=== PATIENT | female | born 1995 | race Caucasian/White ===

== ENCOUNTER 2024-11-23 07:04 | Day surgery (SDC) | payer BC, SELFPAY ==
[2024-11-23] VITALS (12 sets, daily range): BP systolic 120–148; BP diastolic 63–90; PULSE 65–86; RESP 12–23; TEMP 36.6–37.6; O2SAT 93–97; BMI 39.6
[2024-11-23 07:34] LABS: Ur HCG Qualitative* Negative (Negative)
[2024-11-23 07:40] LABS: Hemoglobin* 12.9 gm/dL (12.0-16.0)
[2024-11-23] MEDS: LACTATED RINGERS 1000 ML 1,000 ML 100 ML IV (07:40)
[2024-11-23] MEDS: SODIUM CHLORIDE 0.9 % (FLUSH) 10 ML SYRINGE IVF (07:40)
--- NOTE | 2024-11-23 09:16 | W.PM.H&PU ---
History & Physical Update History & Physical Update H&P Reviewed and patient assessed: No changes noted H&P Updates: She is clear and consistent she desires permanent sterilization. Has not had intercourse in months Mirena IUD in place UPT negative
[2024-11-23] MEDS: BUPIVACAINE 0.5 %/EPI 1:200K 30 ML INJECTION (09:45)
--- NOTE | 2024-11-23 10:15 | P.ANES_ITS ---
Anesthesia Charges Start Date/Time Anesthesia Start Date: 11/23/24 Anesthesia Start Time: 09:12 Stop Date/Time Anesthesia Stop Date: 11/23/24 Anesthesia Stop Time: 10:53 Coding CPT Codes CPT Codes: ANESTH SURG LOWER ABDOMEN - 66303 ([id number]) P3 - PATIENT W/SEVERE SYS DISEASE, QK - DECKHAND OYSTER DREDGE 2-4 CNCRNT ANES PROC, QX - AG SERVICE MANAGER SVC W/ MD MED DIRECTION
--- NOTE | 2024-11-23 10:15 | W.ANESCHARGE ---
Anesthesia Charges Start Date/Time Anesthesia Start Date: 11/23/24 Anesthesia Start Time: 09:12 Stop Date/Time Anesthesia Stop Date: 11/23/24 Anesthesia Stop Time: 10:53 Coding CPT Codes CPT Codes: ANESTH SURG LOWER ABDOMEN - 06264 ([id number]) P3 - PATIENT W/SEVERE SYS DISEASE, QK - FURNACE ROASTER 2-4 CNCRNT ANES PROC, QX - GENERAL CLERK SVC W/ MD MED DIRECTION
--- NOTE | 2024-11-23 10:52 | P.ANES_ITS ---
Anesthesia Charges Start Date/Time Anesthesia Start Date: 11/23/24 Anesthesia Start Time: 09:12 Stop Date/Time Anesthesia Stop Date: 11/23/24 Anesthesia Stop Time: 10:53 Coding CPT Codes CPT Codes: ANESTH SURG LOWER ABDOMEN - 96980 ([id number]) P3 - PATIENT W/SEVERE SYS DISEASE, QK - CATIA DESIGNER 2-4 CNCRNT ANES PROC, QX - SAMPLE STITCHER SVC W/ MD MED DIRECTION
--- NOTE | 2024-11-23 10:52 | W.ANESCHARGE ---
Anesthesia Charges Start Date/Time Anesthesia Start Date: 11/23/24 Anesthesia Start Time: 09:12 Stop Date/Time Anesthesia Stop Date: 11/23/24 Anesthesia Stop Time: 10:53 Coding CPT Codes CPT Codes: ANESTH SURG LOWER ABDOMEN - 27013 ([id number]) P3 - PATIENT W/SEVERE SYS DISEASE, QK - DIRECT CHILL CASTER 2-4 CNCRNT ANES PROC, QX - [place] MAKEUP ARTIST SVC W/ MD MED DIRECTION
--- NOTE | 2024-11-23 10:59 | P.PCNOB_ITS ---
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 Postoperative diagnosis: Same. Procedure: Laparoscopic bilateral salpingectomy Anesthesia: General endotracheal, Local Surgeon: Arcelia Brian MD EBL: 5 mL Urine output: 500 mL clear urine IVF: 950 ml Exam under anesthesia: Mons normal, clitoris normal, urethral meatus normal. Labia minora and majora normal in appearance bilaterally. Perineum and anus normal appearance. Vaginal introitus normal appearance. Bimanual exam reveals uterus to be soft, nontender, mobile, retroverted, of normal size and texture. No palpable adnexal masses or tenderness. On laparoscopy: Normal retroverted uterus, small amount of peritoneal fluid noted in posterior cul-de-sac, normal ovaries bilaterally. Normal right fallopian tube. Left fallopian tube with multiple paratubal cysts. Normal liver and abdominal survey of entry sites. Procedure: Patient was taken to the operating room where general anesthetic was found to be adequate. She was placed in the dorsal lithotomy position and an exam under anesthesia was performed with findings stated above. She was then prepped and draped in a normal sterile manner. A Javier catheter was then placed. A large sponge stick was placed into the vagina to be used as a manipulator was then placed. Attention was then turned to performing the laparoscopic portion of the procedure. All incisions were injected with 0.5% bupivacaine with epi prior to incision. A vertical 5 mm infraumbilical incision was made. Hilda used to grasp the fascia and a small jovi was made in the fascia with curved Solorzano and a 5 mm trocar placed under direct visualization with the laparoscope. 5 mm camera was placed within the 5 mm Fios Kii trocar, and advanced under direct visualization through the anterior abdominal wall into the peritoneal cavity, while tenting up the anterior abdominal wall. The trocar was removed. The balloon was inflated, holding the port in place. Pneumoperitoneum was achieved. Survey of the abdomen and pelvis revealed the above-noted findings. Two additional port sites were created. The first was in the patient's left lower quadrant, just superomedial to the left ASIS. The second was a hand's breath superior to and slightly medial to the first. Each was infiltrated with small amount of Marcaine prior to incision. A 5 mm incision was made at each site, after assuring that large vessels were out of harm's way. A 5 mm Fios Kii port was inserted at each site, under direct visualization and without complication. The balloon on each of the 3 ports was inflated, holding each in place. The right fallopian tube was grasped with a sliding grasper. The left fallopian tube was removed from the broad ligament using the LigaSure dissecting forceps starting at the fimbriated end of the tube. Sequential pedicles were then formed to the level of the cornua. The tube was then removed at the cornua and removed from the abdomen through the left lower quadrant port. The right fallopian tube was removed in a similar manner except the skin the paratubal cysts was stuck at the port site. Thus, balloon was deflated and trocar removed to try an removal the specimen with the trocar. However, this was unsuccessful and skin incision was extended to grasp the fallopian tube with an Allis at the port site under direct visualization and removed with gentle traction. Excellent hemostasis was noted of all pedicles. The trocars were then removed under direct visualization. The CO2 gas was allowed to escape the infraumbilical port prior to its removal. All trocars were 5 mm and thus fascia was not closed. All incisions were reapproximated using 4-0 Monocryl in a running subcuticular manner. Exofin was applied over each incision. The vaginal manipulator and Javier catheter were removed. The patient tolerated this procedure well. Sponge, lap and instrument counts were correct x2 at the end of the procedure and the patient was taken to the recovery area in stable condition. Debrief performed and specimen reviewed.
[2024-11-23] MEDS: fentaNYL 100 MCG/2 ML inj 50 MCG IVP (11:05)
[2024-11-23] MEDS: OXYCODONE 5 MG TABLET PO (11:51)
== END 2024-11-23 12:25 | disposition home or self-care (01) ==
LOC: OR 07:06
PROVIDERS: PCP Family Medicine; Visit Provider Obstetrics & Gynecology
PROC: (CPT 58661; principal; 2024-11-23 08:45)
DX: Z30.2 Encounter for sterilization (principal)
CPT/HCPCS: 58661; 00840; 36415; 81025; 85018; 86850; 86900; 86901; 88307; A4314; A9270; J1100; J1885; J2250; J2405; J2704; J2710; J3010; J3490; J7120

== ENCOUNTER 2025-01-23 02:45 | Emergency (ER) | payer BC, SELFPAY ==
--- OUTSIDE RECORDS SUMMARY | 2025-01-23 02:50 | XMS_ITS | Clinical Summary ---
Author Organization [facility] Address [address] [place] [address] Care Team Providers Care Spring Fitter Helper Name Role Phone Isabela Thorpe MD Primary Care Provider Allergies Active Allergy Reactions Criticality Noted Date Comments Milk GI Upset 07/17/2016 Medications levonorgestrel (MIRENA) 21 mcg/24 hours (8 yrs) 52 mg intrauterine device (IUD)Indications: Uses contraception Inject 1 Device intrauterine one time. 12/07/19 24 Active hydrOXYzine HCL (ATARAX) 25 mg tablet TAKE 1-2 TABLETS BY MOUTH EVERY NIGHT AT BEDTIME NEEDED FOR SLEEP 07/06/19 25 Active durable medical equipment (DME)Indications: Left foot pain,Metatarsal stress fracture, left, initial encounter AIR SELECT, SHORT, MEDIUM, REF: -M 1 Each 10/12/19 25 Active CPAPIndications:O SA (obstructive sleep apnea) RESMED CPAP (E0601) machine for home use at pressure: 5-15cmw, Choice of mask (A7030 or A7034) w/full face cushion (A7031) x1/mo, nasal cushion (A7032) x2/mo, or nasal pillows (A7033) x 2/mo; Length of Need: 99 months; Frequency of use: Daily 1 Each 11 11/09/19 25 Active durable medical equipment (DME)Indications: Left foot pain,Metatarsal stress fracture, left, initial encounter -M airselect, SHORT, Medium 1 Each 11/09/19 25 Active lamoTRIgine 200 mg tablet Take 1 Tablet (200 mg) by mouth once daily. 11/15/19 Active fluvoxaMINE (LUVOX) 100 mg tablet Take 1 Tablet by mouth once daily. 12/30/19 Active vilazodone 20 mg tablet Take 1 Tablet (20 mg) by mouth once daily. 11/15/19 25 025 Discontinu ed(*Patien t states no longer taking) predniSONE (DELTASONE) 10 mg tabletIndications :Myalgia Take 3 Tablets (30 mg) by mouth once daily with a meal for 2 days, THEN 2 Tablets (20 mg) once daily with a meal for 2 days, THEN 1 Tablet (10 mg) once daily with a meal for 2 days. 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 The disorder was active on 06/17/2023 and 10/11/2024. Treatment for bipolar I disorder was planned, but not specifically for seizure disorder. 02/26/22: TSH 1.07 uIU/mL On meds: lamotrigine Recent encounter dx: 10/11/24: Appointment - [facility] 07/07/24: Appointment - [facility] 11/02/23: Support OP Encounter - [facility] 06/17/23: Appointment - [facility] 02/26/22: Appointment - [facility] Recent notes: 10/11/24: Progress Notes by Sadi Trejo DPM ... [+] ? Bipolar I disorder, most recent episode (or current) manic, moderate (HC) F31.12 07/07/24: Progress Notes by Isabela Thorpe MD ... [+] Bipolar I disorder, most recent episode (or current) manic, moderate (HC) F31.12 10/28/23: Progress Notes by Isabela Thorpe MD ... [+] ? Bipolar I disorder, most recent episode (or current) manic, moderate (HC) 06/17/2023 ... [-] However, as this is planned for treatment of bipolar 1 disorder rather than seizure disorder, would not be as much of a safety concern. Cervical cancer screening 08/03/2024 Overview (08/03/2024): 07/2024 NIL/HPV Negative Plan: HPV-based testing due in 5 years Bipolar I disorder, most rec ent episode (or current) manic, moderate 06/17/2023 Encounters Date Type Department Care Team Description 01/11/2025 4:10 PM CDT Office Visit [facility] [address] [place] [address] Kamlesh Baca, Musculoskeletal Problem (I am in so much pain /Bodyaches - skin, joint, achy body 12/15 - took 600mg IBU and helps some /X1 week ); Fatigue (Falling asleep, feeling fatigued, has been taking her cpap mask off in her sleep without knowing it/No energy, no motivation /X1 week ) 01/11/2025 Travel 12/07/2024 3:45 PM CDT Ancillary Procedure [facility] [address] [place] [address] 12/07/2024 3:15 PM CDT Office Visit [facility] [address] [place] [address] Sadi Trejo DPM Follow Up (4 week follow up left foot stress fracture ) 12/07/2024 Travel 11/24/2024 Lab Requisition [facility] [phone] Arcelia Brian MD 11/23/2024 Orders Only [facility] Scanner 1 scan: (1-Ord) [facility], LAPAROSCOPIC BILAT SALPINGECTOMY, 11/23/2024 11/21/2024 Telephone [facility] [address] [place] [address] Sadi Trejo DPM DME Supply (Custom orthotics) 11/14/2024 1:30 PM CDT Office Visit [facility] [address] [place] [address] Isabela Thorpe MD Pre-Op Exam (bilateral laparocoscopic on 11/23/[address] Brian) 11/14/2024 Travel 11/08/2024 3:30 PM CDT Ancillary Procedure [address] [place] [address] 11/08/2024 3:15 PM CDT Office Visit [address] [place] [address] Sadi Trejo DPM Follow Up (Left foot stress fracture, 4 week follow up) 11/08/2024 11:30 AM CDT Telemedicine [address] [address] Francisco Brito MD Sleep Follow-up (HST); Telehealth (Virtual visit, no vitals taken.) 11/08/[address] [place] [address] Sadi Trejo DPM Questions (IMAGING ) 11/08/2024 Travel 11/07/[address] [address] Sadi Trejo DPM Form 10/26/2024 7:30 AM CDT Nurse/Clinic Staff Only [address] [address] Testing (HST Return/Download) 10/26/2024 Travel 10/25/2024 2:00 PM CDT Nurse/Clinic Staff Only [address] [address] Testing (HST Setup) 10/25/2024 Procedure Only [address] [address] Francisco Brito MD Results (HST) 10/25/2024 Travel from Last 3 Months Immunizations Immunization Administration Dates Next Due COVID-19 vaccine (Zaplox NTPay[employer] 30mcg/0.3mL) PF, MDV 05/13/2021,10/11/2020,09/20/2020 HPV 9 (Gardasil 9) 02/27/2021,06/02/2019 Human Papilloma Virus Vaccine 01/27/2014 Influenza A (H1N1), Inactivated 04/27/2009 Influenza, IIV4 04/10/2023,02/27/2021,03/03/2019 Td (Age >=7 Years) 02/27/2021 Tdap 01/31/2010 Varicella Vaccine 01/31/2010 Family History Medical History Relation Name Comments Good Health Brother 3 Good Health Brother 4 Good Health Father Thyroid Disease Maternal Aunt Grave's Diabetes Maternal Grandfather Thyroid Disease Maternal Grandmother Good Health Mother Relation Name Status Comments Brother 1 Alive Brother 2 Alive Brother 3 Brother 4 Father Alive Maternal Aunt Maternal Grandfather Maternal Grandmother Mother Alive Social History Tobacco Use Types Packs/Day Years Used Date Smoking Tobacco: Never Smokeless Tobacco: Never Tobacco Cessation:Counseling Given: Yes Alcohol Use Standard Drinks/Week Comments Yes 0 (1 standard drink = 0.6 oz pur e alcohol) socially PHQ-2 Answer Date Recorded PHQ-2 TOTAL SCORE 2 07/07/2024 Social Connections Answer Date Recorded Do you often feel lonely or isolated from those around you? 0 11/14/2024 Financial Resource Strain Answer Date R ecorded Difficulty of Paying Living Expenses 3 11/14/2024 Difficulty of Paying Living Expenses Not on file 11/14/2024 Food Insecurity Answer Date Recorded Do you worry your food will run out before you are able to buy more? 1 11/14/2024 Transportation Needs Answer Date Record ed Does lack of transportation keep you from medica l appointments? 1 11/14/2024 Does lack of transportation keep you from work, meetings or getting things that you need? 1 11/14/2024 Housing Stability Answer Date Recorded What is your housing situation today? 1 11/14/2024 Utilities Answer Date Recorded Do you have trouble paying f or utilities (for example, heat, electricity, water, phone)? 1 11/14/2024 Comments No Sex and Gender Information Value Date Recorded Sex Assigned at Female 03/14/2020 2:22 PM CDT Legal Sex Female 8:01 AM CDT Gender Identity Not on file Sexual Orientation Lesbian or Alexis 05/12/2021 10 :50 AM DYE WEIGHER Occupation Industry Job Start Date Job End Date student Not on file Not on file Not on file Obstetrics History Para Term AB IAB SAB Ectopic Multiple Livin g Live Births 0 0 0 0 0 0 0 0 0 0 Last Filed Vital Signs Vital Sign Reading Time Taken Comments Blood Pressure 122/80 01/11/2025 4:08 PM CDT Pulse 82 01/11/2025 4:08 PM CDT Temperature 37.3 C (99.2 F) 06/17/2023 2:28 PM DYE WEIGHER Respiratory Rate 14 02/23/2015 2:32 PM CDT Oxygen Saturation 98% 01/11/2025 4:08 PM CDT Inhaled Oxygen Concentration - - Weight 104.2 kg (229 lb 12.8 oz) 01/11/2025 4:08 PM CDT Height 161.5 cm (5' 3.58) 10/11/2024 1:26 PM CD T Body Mass Index 39.97 10/11/2024 1:26 PM CDT Plan of Treatment Upcoming Encounters Date Type Department Care Team (Late st Contact Info) Description 01/24/2025 9:00 AM CDT Ancillary Procedure [facility] [address] [place] [address] 01/24/2025 9:45 AM CDT Ancillary Procedure [facility] [address] [place] [address] Health Maintenance Due Date Last Done Comments Hepatitis C screening for age 18-79 2015 Hepatitis B series for 19+ (1 of 3 - 19+ 3-dose series) 2016 COVID-19 vaccine series ( season) 2024 05/13/2021, 10/11/2020, 09/20/2020 Influenza Vaccine (#1) 2025 , 02/27/2021, 03/03/2019 Depression screening for age 12+ 07/08/2025 07/08/2024, 07/07/2024, 09/26/2022, Additional history exists BMI (ht and wt on same day) for age 18+ 10/11/2025 10/11/2024, 07/07/2024, 10/28/2023, Additional history exists Pap test for age 21-65 07/19/2029 , 07/19/2024, 09/06/2020 Tetanus booster 02/27/2031 02/27/2021, 01/31/2010 HIV for age 15-65 Completed 07/07/2024, 08/03/2019 Pneumococcal series for age 6-49 Aged Out No longer eligible based on patient's age to complete this topic Procedures Procedure Name Priority Date/Time Associated Diagnosis Comments FERRITIN Routine 01/11/2025 4:31 PM CDT Myalgia SEDIMENTATION RATE Routine 01/11/2025 4: 31 PM CDT Myalgia CYCLIC CITRULLINE PEPTIDE Routine 01/11/2025 4:31 PM CDT Myalgia PTH,INTACT Routine 01/11/2025 4:31 PM CDT Myalgia HLA B 27 DISEASE ASSOCIATION Routine 01/11/2025 4:31 PM CDT Myalgia LYME SCREEN W/REFLEX Routine 01/11/2025 4:31 PM CDT Myalgia TSH WITH REFLEX Routine 01/11/2025 4:31 PM CDT Myalgia CBC WITH AUTO DIFFERENTIAL Routine 01/11/2025 4:31 PM CDT Myalgia COMP METABOLIC PANEL Routine 01/11/2025 4:31 PM CDT Myalgia C-REACTIVE PROTEIN Routine 01/11/2025 4: 31 PM CDT Myalgia CK TOTAL Routine 01/11/2025 4:31 PM CDT Myalgia XR FOOT 3 VIEWS LEFT Routine 12/07/2024 3:28 PM CDT Left foot pain Metatarsal stress fracture, left, initial encounter Follow-up exam LAB TRACKING EVENT Routine 11/23/2024 10 :10 AM CDT PATH TISSUE EXAM Routine 11/23/2024 10:1 0 AM CDT SCAN-OPERATIVE/PROCEDU RE REPORT 11/23/2024 12:00 AM CDT XR FOOT 3 VIEWS LEFT Routine 11/08/2024 3:18 PM CDT Left foot pain Metatarsal stress fracture, left, initial encounter HOME SLEEP TEST TYPE 3 PORTABLE Routine 10/25/2024 11:59 PM CDT ZENAIDA (obstructive sleep apnea) YARD SUPERVISOR THIN PREP PAP SCREEN IMAGED Routine 07/19/2024 2:01 PM DYE WEIGHER Pap smear for cervical cancer screening ANTI HIV 1/2 Routine 07/07/2024 2:25 PM DYE WEIGHER Routine screening for STI (sexually transmitted infection) from Last 3 Months or Most Recently Relevant to Health Maintenance Results * SEDIMENTATION RATE (01/11/2025 4:31 PM CDT) SED RATE BY MODIFIED ROULAREN 14 < OR = 20 mm/h [facility] Blood BLOOD SPECIMEN / Unknown 01/11/2025 4:31 PM CDT 01/11/2025 4:32 PM CDT us Kamlesh Baca DO HEMATOLOGY Final Result [employer] [facility] [address] [place] [address], [facility] [address] [place] [address] * HLA B 27 DISEASE ASSOCIATION (01/11/2025 4:31 PM CDT) HLA B27 Negative Negative [facility]/ Jacquelyn [facility] Comment: HLA B27 RESULTS REVIEWED BY see note [facility]/ [facility] Comment: Doug Stinson M.D. # Ph.D., [facility] Compressor Operator, Cytogenetics and Genomics The B27 allele group of the HLA-B locus is present in 2 to 9% of the general population. About 20% of HLA-B27 carriers develop autoimmune disorders including Ankylosing Spondylitis (), Reactive Arthritis, Psoriatic Arthritis, Undifferentiated Oligoarthritis, Uveitis, or Inflammatory Bowel Disease. The highest association is with , where approximately 95% of patients are HLA-B27 positive. Genetic counseling as needed. Typing performed by PCR and hybridization with sequence specific oligonucleotide probes (SSO) using the FDA-cleared LABType(R) SSO Kit. Blood BLOOD SPECIMEN / Unknown 01/11/2025 4:31 PM CDT 01/11/2025 4:32 PM CDT Kamlesh Baca DO SEND OUTS Final Result Performing Organization Address City/[facility]/ZIP Co de Phone Number [employer] [place] [address] [place], [place] , [facility] [address] * TSH WITH REFLEX (01/11/2025 4:31 PM CDT) TSH W/REFLEX TO FT4 0.81 mIU/L [facility] Comment: Reference Range > or = 20 Years 0.40-4.50 Ranges First trimester 0.26-2.66 Second trimester 0.55-2.73 Third trimester 0.43-2.91 Blood BLOOD SPECIMEN / Unknown 01/11/2025 4:31 PM CDT 01/11/2025 4:32 PM CDT Kamlesh Baca DO CHEMISTRY Final Result Performing Organization Address City/[facility]/ZIP Co de Phone Number [facility] [facility] [address] [place] [address], [facility] [address] [place] [address] * CYCLIC CITRULLINE PEPTIDE (01/11/2025 4:31 PM CDT) CYCLIC CITRULLINATED PEPTIDE (CCP) AB (IGG) <16 UNITS [facility] [place] Comment: Reference Range Negative: <20 Weak Positive: 20-39 Moderate Positive: 40-59 Strong Positive: >59 Blood BLOOD SPECIMEN / Unknown 01/11/2025 4:31 PM CDT 01/11/2025 4:32 PM CDT Vivianakevin Pisanolasha DO SEND OUTS Final Result [facility] [employer] [facility] [address] [place] [address], [facility] [address] [place] [address] * LYME SCREEN W/REFLEX (01/11/2025 4:31 PM CDT) Pathologist [facility] LYME AB, SCREEN < or = 0.90 index [facility], Comment: REFERENCE RANGE: < OR = 0.90 Index Index Interpretation < OR = 0.90 NEGATIVE 0.91 - 1.09 EQUIVOCAL > OR = 1.10 POSITIVE This assay measures Lyme Disease (Borrelia burgdorferi) IgG plus IgM antibodies; it does not distinguish results that are both IgG and IgM positive from results that are either IgG or IgM positive. As recommended by the Centers for Disease Control and Prevention (CDC), all samples with positive or equivocal results in this screening assay will be tested using separate supplemental Lyme IgG and IgM immunoassays. Positive or equivocal screening assay results should not be interpreted as truly positive until verified as such using the supplemental assays. Screening and/or supplemental tests for Lyme disease antibodies may be falsely negative in early stages of Lyme disease, including the period when erythema migrans is apparent. These assays may be falsely positive in patients with other spirochetal diseases (e.g., syphilis) or infectious mononucleosis. Blood BLOOD SPECIMEN / Unknown 01/11/2025 4:31 PM CDT 01/11/2025 4:32 PM CDT Kamlesh Baca DO SEND OUTS Final Result Performing Organization Address [facility] Co de Phone Number [facility] [address] [place] [address], [facility], [address] [place] [address] * (ABNORMAL) C-REACTIVE PROTEIN (01/11/2025 4:31 PM CDT) Pathologist [facility] C-REACTIVE PROTEIN 14.5(H) <8.0 mg/L [facility] [place] Blood BLOOD SPECIMEN / Unknown 01/11/2025 4:31 PM CDT 01/11/2025 4:32 PM CDT Kamlesh Baca DO CHEMISTRY Final Result Performing Organization Address [facility] de Phone Number [facility] [address] [place] [address], [facility] [address] [place] [address] * (ABNORMAL) CBC AND DIFFERENTIAL (01/11/2025 4:31 PM CDT) Pathologist [facility] WHITE BLOOD CELL COUNT 8.0 3.8 - 10.8 Thousand/u L [facility] RED BLOOD CELL COUNT 4.74 3.80 - 5.10 Million/uL [facility] HEMOGLOBIN 13.8 11.7 - 15.5 g/dL [facility] HEMATOCRIT 41.2 35.0 - 45.0 % [facility] MCV 86.9 80.0 - 100.0 fL [facility] MCH 29.1 27.0 - 33.0 pg [facility] MCHC 33.5 32.0 - 36.0 g/dL [facility] Comment: For adults, a slight decrease in the calculated MCHC value (in the range of 30 to 32 g/dL) is most likely not clinically significant; however, it should be interpreted with caution in correlation with other red cell parameters and the patient's clinical condition. RDW 14.7 11.0 - 15.0 % [facility] PLATELET COUNT 345 140 - 400 Thousand/u L [facility] MPV 10.8 7.5 - 12.5 fL [facility] ABSOLUTE NEUTROPHILS 5,112 1,500 - 7,800 cells/uL [facility] ABSOLUTE LYMPHOCYTES 1,736 850 - 3,900 cells/uL [facility] ABSOLUTE MONOCYTES 568 200 - 950 cells/uL [facility] ABSOLUTE EOSINOPHILS 544(H) 15 - 500 cells/uL [facility] ABSOLUTE BASOPHILS 40 0 - 200 cells/uL [facility] [place] NEUTROPHILS 63.9 % [facility] LYMPHOCYTES 21.7 % [facility] MONOCYTES 7.1 % [facility] EOSINOPHILS 6.8 % [facility] BASOPHILS 0.5 % [facility] Blood BLOOD SPECIMEN / Unknown 01/11/2025 4:31 PM CDT 01/11/2025 4:32 PM CDT us Kamlesh Baca DO HEMATOLOGY Final Result [facility] [address] [place] [address], [facility] [address] [place] [address] * PTH,INTACT (01/11/2025 4:31 PM CDT) PARATHYROID HORMONE, INTACT 34 16 - 77 pg/mL [facility] [place] Comment: Interpretive Guide Intact PTH Calcium ------- Normal Parathyroid Normal Normal Hypoparathyroidism Low or Low Normal Low Hyperparathyroidism Primary Normal or High High Secondary High Normal or Low Tertiary High High Non-Parathyroid Hypercalcemia Low or Low Normal High CALCIUM 9.6 8.6 - 10.2 mg/dL [facility] [place] Blood BLOOD SPECIMEN / Unknown 01/11/2025 4:31 PM CDT 01/11/2025 4:32 PM CDT Kamlesh Baca DO SEND OUTS Final Result Performing Organization Address [facility]/ZIP Co de Phone Number [facility] [address] [place] [address], [place] [phone] [facility] [address] [place] [address] * FERRITIN (01/11/2025 4:31 PM CDT) FERRITIN 16 16 - 154 ng/mL [facility] [place] Blood BLOOD SPECIMEN / Unknown 01/11/2025 4:31 PM CDT 01/11/2025 4:32 PM CDT Kamlesh Baca DO CHEMISTRY Final Result Performing Organization Address [facility] de Phone Number [facility] [address] [place] [address], [place] [phone] [facility] [address] [place] [address] * CK TOTAL (01/11/2025 4:31 PM CDT) CREATINE KINASE, TOTAL 185 20 - 239 U/L [facility] Blood BLOOD SPECIMEN / Unknown 01/11/2025 4:31 PM CDT 01/11/2025 4:32 PM CDT Kamlesh Baca DO CHEMISTRY Final Result Performing Organization Address [facility]/ZIP Co de Phone Number [facility] [address] [place] [address], [facility] [address] [place] [address] * (ABNORMAL) COMP METABOLIC PANEL (01/11/2025 4:31 PM CDT) [facility] GLUCOSE 92 65 - 99 mg/dL [facility] [place] Comment: Fasting reference interval UREA NITROGEN (BUN) 10 7 - 25 mg/dL [facility] [place] CREATININE 1.01(H) 0.50 - 0.96 mg/dL [facility] [place] EGFR 78 > OR = 60 mL/min/1.7 3m2 [facility] [place] BUN/CREATININE RATIO 10 6 - 22 (calc) [facility] [place] SODIUM 141 135 - 146 mmol/L [facility] [place] POTASSIUM 4.0 3.5 - 5.3 mmol/L [facility] [place] CHLORIDE 106 98 - 110 mmol/L [facility] [place] CARBON DIOXIDE 26 20 - 32 mmol/L [facility] [place] CALCIUM 9.6 8.6 - 10.2 mg/dL [facility] [place] PROTEIN, TOTAL 6.4 6.1 - 8.1 g/dL [facility] [place] ALBUMIN 4.2 3.6 - 5.1 g/dL [facility] [place] GLOBULIN 2.2 1.9 - 3.7 g/dL (calc) [facility] [place] ALBUMIN/GLOBULIN RATIO 1.9 1.0 - 2.5 (calc) [facility] [place] BILIRUBIN, TOTAL 0.3 0.2 - 1.2 mg/dL [facility] [place] ALKALINE PHOSPHATASE 126(H) 31 - 125 U/L [facility] [place] AST 24 10 - 30 U/L [facility] [place] ALT 31(H) 6 - 29 U/L [facility] [place] Blood BLOOD SPECIMEN / Unknown 01/11/2025 4:31 PM CDT 01/11/2025 4:32 PM CDT Kamlesh Baca DO CHEMISTRY Final Result [facility] [address] [place] [address], [place] [phone] [facility] [address] [place] [address] * XR FOOT 3 VIEWS LEFT (12/07/2024 3:28 PM CDT) Only the most recent of2 resultswithin the time period is included. Anatomical Region Laterality Modality FEET, FOOT L Computed Radiogr aphy Impressions 12/08/2024 1:43 PM CDT No significant change. Narrative 12/08/2024 1:43 PM CDT LEFT FOOT, 3 views CLINICAL HISTORY: Pain FINDINGS: Stable appearance of the 3rd metatarsal. No other findings. Sadi Trejo DPM GENERAL IMAGING Final Res ult * LAB TRACKING EVENT (11/23/2024 10:10 AM CDT) Other (Other) Client Collect / Unknown 11/23/2024 10:10 AM CDT 11/24/2024 6:34 AM CDT Arcelia Brian MD LAB BILL ONLY Final Result [facility] [address] [place] [id number], * PATH TISSUE EXAM (11/23/2024 10:10 AM CDT) Case Report Pathology Report Case: [id number] Authorizing Provider: Arcelia Brian MD Collected: 11/23/2024 1010 Ordering Location: [facility] Received: 11/24/2024 1402 Pathologist: Sarahi Merida MD Specimen: Bilateral Fallopian Tubes 11/25/2024 4:19 PM CDT [facility] [employer] [facility] LABORATORY-C ENTRAL LABORATORY Final Diagnosis A) BILATERAL FALLOPIAN TUBES, BILATERAL SALPINGECTOMY: 1. Bilateral fimbriated fallopian tubes with benign paratubal cyst(s) 2. One fallopian tube also with a benign adenofibroma at the fimbriated end 3. Negative for malignancy 11/25/2024 4:19 PM CDT [facility] at 1619 CDT Clinical Information Bilateral salpingectomy for sterilization. 11/25/2024 4:19 PM CDT [facility] Gross Description A) Received in formalin, labeled with the patient's name and bilateral fallopian tubes, are 2 fimbriated fallopian tube segments averaging 5.5 cm length and 0.7 cm diameter each. There is a 0.2 x 0.2 cm light ivan nodule at the fimbriated end of 1 tube. Patent lumina are identified throughout both tubes. There are 2 separately submitted thin-walled cysts measuring 1.8 cm (previously ruptured), and 0.7 cm (intact). The smaller intact cyst contains clear watery fluid. There are no excrescences or nodules identified within the lining of either cyst. There are multiple fragments of separately submitted lobulated fatty tissue measuring 2 x 2 x 1 cm in aggregate. There are no suspicious areas identified. [employer] sections are submitted as follows: 1. Light ivan nodule adjacent to fimbriated end of tube #1 2. [employer] cross-sections and entire fimbriated end of tube #1 3. Box [place] [employer] Builder cross-sections and entire fimbriated end of tube #2 4. Sections from each of 2 separate thin-walled cysts TRB 11/24/2024 11/25/2024 4:19 PM CDT [facility] Microscopic Description The final diagnosis is based on microscopic examination of appropriate sections of all specimens. 11/25/2024 4:19 PM CDT [facility] Additional Information Interpreted at [facility] - [address], [place] [address] 11/25/2024 4:19 PM CDT [facility] Other (Bilateral Fallopian Tubes) 11/23/2024 10:10 AM CDT 11/24/2024 2:02 PM CDT us Arcelia Denae Brian MD PATHOLOGY/CYTOLOGY Final Result [facility] [address] [place] [address], * SCAN-OPERATIVE/PROCEDURE REPORT (11/23/2024 12:00 AM CDT) us Scanner OTHER Final Result * HOME SLEEP TEST TYPE 3 PORTABLE (10/25/2024 11:59 PM CDT) Narrative Francisco Brito MD - 10/25/2024 11:59 PM CDT Francisco Brito MD 10/27/2024 12:50 PM Home Sleep Test Name: Ministerio Paniagua Location: [facility] Study notes: This is a single night home sleep apnea test. The study is performed in the context of a clinical suspicion for sleep apnea. Ministerio Paniagua ( 1995) is studied using a T3 Device using nasal pressure transducer, thoracoabdominal respiratory impedence plethysmography belts, pulse oximetry, snore microphone and actigraphy for body position. The study is scored by a RPSGT and interpreted by a Diplomate of the [place] Board of Sleep Medicine. Raw summary data is scanned into this report as a separate document. An epoch by epoch review of the data has been performed by the interpreting physician. Scored following the AASM Manual for the Scoring of Sleep and Associated Events, V3. Respiratory Event Index (JENNI) Oxygen Desaturation Index (JHONATAN) REI4% 7.1 ODI4%: 6.3 REI3% 12.4 ODI3%: 12.9 Supine JENNI: 20.5 Suhas Saturation 84 % Lateral JENNI: 5.2 Time Below 88% 1.8 minutes Weight: Wt Readings from Last 1 Encounters: 10/11/24 103.1 kg (227 lb 6.4 oz) Other data: Recording Duration: 420.0 minutes Time in Bed: 419.8 minutes Estimated sleep efficiency [%]: 95 % Oximeter Quality: 99.2 % Flow Quality: 100.0 % RIP Quality: 100.0 % Supine time: 198.6 minutes Average SpO2: 93.1 % Pulse Average: 67.3 bpm Additional Comments: None IMPRESSION: Obstructive Sleep Apnea (327.23, G47.33) Nocturnal Hypoxia (327.26, G47.34) RECOMMENDATIONS: - Hypoxia is noted. While this can be probe error, it may suggest underlying cardiopulmonary disease and clinical correlation is recommended. - Mild sleep apnea is discovered. If there is low clinical suspicion of sleep apnea, this could be a false positive. Polysomnography could be considered. - Mild sleep apnea only needs treatment in the presence of attributable sleepiness. In the absence of symptoms, treatment may not be indicated. Clinical correlation is recommended. - Treatment options for mild sleep apnea include CPAP, a mandibular advancement device, lifestyle modifications such as weight loss, sedative/alcohol avoidance, avoiding supine sleep and surgical therapies can be considered in highly selected patients. - Treatment for obstructive sleep apnea is recommended and CPAP would generally be considered first-line therapy for this severity of sleep apnea. Consider auto-titrating CPAP 5-20 cm. - Consider a referral to [facility] for patients with a BMI > 30. - Follow-up with a provider to discuss results is recommended. - Patients should be advised to avoid critical tasks, such as driving, whenever drowsy. - Patients should try to achieve at least 7-8 hours of sleep on a consistent basis. - The JENNI is a surrogate for AHI. For reimbursement and/or prior authorization purposes, it would be appropriate to list the JENNI as an AHI when the latter is accepted, but not the former. Francisco Brito M.D. Diplomate, Board of Sleep Medicine Recording Information Recording Date: 10/25/2024 Analysis Start Time: 8:30 PM Recording Tags: Analysis Stop Time: 3:29 AM Device Type: T3S Analysis Duration (TRT): 6h 59m Est. Total Sleep Time: 6h 59m Position and Analysis Time Duration Percentage Supine (in TST): 198.6 m 47.3 % Non-Supine (in TST): 221 m 52.7 % Upright (in TRT): 0.2 m 0 % Movement (in TST): 19.6 m 4.7 % Invalid Data (Excluded): 0 m 0 % Respiratory Indices Index Total Supine Non-supine Count Apneas + Hypopneas (REI3%): 12.4 /h 20.5 /h 5.2 /h 87 Apneas + Hypopneas (REI4%) 7.1 /h /h /h Apneas: 0.9 /h 1.5 /h 0.3 /h 6 Obstructive (OA): 0.7 /h 1.5 /h 0 /h 5 Mixed (MA): 0 /h 0 /h 0 /h 0 Central (CA): 0.1 /h 0 /h 0.3 /h 1 Hypopneas 3%: 11.6 /h 19 /h 4.9 /h 81 Hypopneas 4%: 0 /h 63 /h 18 /h 0 Respiration Rate (per m): 16.8 /m 17.2 /m 16.5 /m Percentage of Sleep Duration Snore: 25.2 % 8.3 % 40.3 % 105.6 m Flow Limitation: 0 % 0 % 0 % 0 m Average Snore Volume 67.6 dB Percent of time greater than 80dB: Percent of 24.1 % Oxygen Saturation (SpO2) Total Supine Non-supine Oxygen Desaturation Index (JHONATAN): 12.9 /h 20.5 /h 6 /h Average SpO2: 93.1 % 92 % 94 % Minimum SpO2: 84 % 84 % 89 % SpO2 Duration < 90% 1.1 % (4.4m) 2.2 % 0 % SpO2 Duration <= 88% 0.4 % (1.8m) 0.9 % 0 % Pulse in TST Quality Average: 67.3 bpm Oximeter: 99.2 % Maximum: 90 bpm Nasal Cannula: 100 % Minimum: 53 bpm Abdomen RIP: 100 % Duration < 40 bpm: 0 m Thorax RIP: 100 % Duration > 100 bpm: 0 m Francisco Brito MD SLEEP CENTER Final Result * YARD SUPERVISOR THIN PREP PAP SCREEN IMAGED (07/19/2024 2:01 PM DYE WEIGHER) Case Report Gynecologic Cytology Report Case: [id number] Authorizing Provider: Flaca Baca DO Collected: 07/19/2024 1401 Ordering Location: [facility] Received: 07/19/2024 1408 Clinic First Screen: Ingrid Kent Specimen: YARD SUPERVISOR ThinPrep Vial Screening, Cervical 08/03/2024 12:06 PM DYE WEIGHER [facility] INTERPRETATION /RESULT NEGATIVE FOR INTRAEPITHELIAL LESION OR MALIGNANCY (NIL) (none) 08/03/2024 12:[address] [facility] at 1206 DYE WEIGHER ORGANISM(S) Shift in luciana suggestive of bacterial vaginosis 08/03/2024 12:06 PM DYE WEIGHER [facility] SPECIMEN ADEQUACY Satisfactory for evaluation Endocervical component present 08/03/2024 12:06 PM DYE WEIGHER [facility] HPV REQUEST HPV and PAP 08/03/2024 12:06 PM DYE WEIGHER [facility] Date of LMP hormonally suppressed 08/03/2024 12:06 PM DYE WEIGHER [facility] Last Pap Date 09/06/20 08/03/2024 12:06 PM DYE WEIGHER [facility] Last Pap Result NIL 08/03/2024 12:06 PM DYE WEIGHER [facility] Abnormal Pap or [place] Bx in last 5 years No 08/03/2024 12:06 PM DYE WEIGHER [facility] Menstrual Status Hormonally Suppressed 08/03/2024 12:06 PM DYE WEIGHER [facility] [place] Bx Done Today No 08/03/2024 12:06 PM DYE WEIGHER [facility] Additional Information None given 08/03/2024 12:06 PM DYE WEIGHER [facility] Comment: Cytology is screened at [facility] - [address], [place] [address] and [facility] - [address], [place] [address] and [facility] - [address] [place] [address] Interpreted at [facility] - [address], [place] [address] Automated Review Failed 08/03/2024 12:06 PM DYE WEIGHER [facility] Comment:Processing failed, m anual screening required. ThinPrep Imaging System, [employer] ANCILLARY TESTING YARD SUPERVISOR HPV Ordered, Please see separate report 08/03/2024 12:06 PM DYE WEIGHER [facility] Note The pap test is a screening technique, not a diagnostic procedure. It is used primarily to screen for squamous cancers and precursor lesions. Published studies have shown that it is subject to both false negative and false positive results. The pap test should not be used as the sole means to diagnose or exclude pre-malignant and malignant lesions. 08/03/2024 12:06 PM DYE WEIGHER [facility] Other (Cervical) Non-Blood / Unknown 07/19/2024 2:01 PM DYE WEIGHER 07/19/2024 2:08 PM DYE WEIGHER Flaca Reshma Baca DO PATHOLOGY/CYTOLOGY Final Resu lt [facility] [address] [place] [address], [place] * ANTI HIV 1/2 (07/07/2024 2:25 PM DYE WEIGHER) HIV AG/AB, 4TH GEN NON-REACT SJ NON-REACT SJ [employer] Comment: HIV-1 antigen and HIV-1/HIV-2 antibodies were not detected. There is no laboratory evidence of HIV infection. PLEASE NOTE: This information has been disclosed to you from records whose confidentiality may be protected by state law. If your state requires such protection, then the state law prohibits you from making any further disclosure of the information without the specific written consent of the person to whom it pertains, or as otherwise permitted by law. A general authorization for the release of medical or other information is NOT sufficient for this purpose. For additional information please refer to http://education.[employer]/faq/RKX228 (This link is being provided for informational/ educational purposes only.) The performance of this assay has not been clinically validated in patients less than 2 years old. Blood BLOOD SPECIMEN / Unknown 07/07/2024 2:25 PM DYE WEIGHER 07/07/2024 2:26 PM DYE WEIGHER Isabela Thorpe MD SEND OUTS Final Resul t [employer] [id number] [place] [address], [facility] [address] [place] [address] from Last 3 Months or Most Recently Relevant to Health Maintenance Insurance [id number] [id number] [facility] [phone] [phone] [facility] Care Teams Spring Fitter Helper Relationship Specialty Start Date End Date Isabela Thorpe MD [address] [place] [address] PCP - General Family Practice 09/06/20
[2025-01-23 02:56] VITALS: BP 150/80; PULSE 77; RESP 24; TEMP 36.4; O2SAT 98; BMI 39.9
[2025-01-23 03:06] LABS: Hematocrit 46.6 % (33.0-51.0); Hemoglobin* 15.6 gm/dL (12.0-16.0); Immature Granulocytes Pct Auto 0.8 %; Mean Corpuscular HGB Conc 34 gm/dL (32-36); Mean Corpuscular Hemoglobin 29 pg (26-34); Mean Corpuscular Volume 87 fL (80-100); RDW Coefficient of Variation % 13.5 % (11.5-15.5); Red Blood Count 5.38 m/uL (4.00-5.20); White Blood Count* 13.48 K/uL (4.50-11.00)
--- NOTE | 2025-01-23 03:06 | ED.GENADULT ---
HPI - General Adult General Chief complaint: Nausea/Vomiting Stated complaint: vomiting Time Seen by Provider: 01/23/25 03:06 History of Present Illness HPI narrative: Patient c/o vomiting x 1 hour. Patient denies pain, fever, urinary symptoms, changes in bowel movements . Patient states she has a lot of stressors and anxiety. Patient had salpingectomy. Patient states daily THC use. 29-year-old woman presenting to the emergency department with concern of vomiting. She had been asleep and woke and began vomiting. Has not had a fever but does feel hot. Apparently week ago did have labs done that indicated that she had an inflamed liver and that her kidneys were ?failing?. Is pending tomorrow an ultrasound of her liver and kidneys apparently. Is not really having any abdominal pain. No noted rashes. 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 Denies history of heartburn/GERD. Also has had deep pains in various locations including joint pain and swelling as well. Later able to locate said labs. Reviewed mild elevation in ALT and apparently CRP as well. Renal function looked okay. Noted that suprapubic and right lower quadrant were tender during exam. Apparently somewhat chronic and certainly present since most recent surgery; salpingectomy. Related Data Home Medications ?Medication ?Instructions ?Recorded ?Confirmed lamotrigine 200 mg tablet 200 mg PO QDAY 10/28/24 12/07/24 levonorgestrel (Mirena) 1 device intrauterine ONCE 10/28/24 12/07/24 cholecalciferol (vitamin D3) 10 10 mcg PO QDAY 12/07/24 12/07/24 mcg (400 unit) capsule hydroxyzine HCl 25 mg tablet 25 - 50 mg PO QPM PRN insomnia 12/07/24 12/07/24 vilazodone 10 mg tablet 10 mg PO DAILY 12/07/24 12/07/24 Allergies Allergy/AdvReac Type Severity Reaction Status Date / Time No Known Drug Allergies Allergy Verified 12/07/24 11:24 Review of Systems Status of ROS: Reports: 6 or more systems reviewed and unremarkable except as noted in History and below [facility] Medical History Unwanted fertility ?Z30.09 - Encounter for other general counseling and advice on contraception (ICD-10) IUD strings lost ?T83.32XA - Displacement of intrauterine contraceptive device, initial encounter (ICD-10) ZENAIDA (obstructive sleep apnea) ?G47.33 - Obstructive sleep apnea (adult) (pediatric) (ICD-10) Bipolar 1 disorder, manic, moderate ?F31.12 - Bipolar disorder, current episode manic without psychotic features, moderate (ICD-10) Surgical History History of salpingectomy ?Z90.79 - Acquired absence of other genital organ(s) (ICD-10) Social History Smoking Status: Never smoker Do you use any of these nicotine containing products: None How often do you have a drink containing alcohol: monthly or less Alcohol type: hard liquor How many standard drinks containing alcohol do you have on a typical day: 1 or 2 How often do you have six or more drinks on one occasion: Never AUDIT-C Alcohol total score: 1 Non-prescribed substance use: marijuana (any form) Non-prescribed substance use details: Daily Caffeine: Yes Are you using contraception or practicing any form of control: No service: No Exam Narrative: Exam Narrative: Cheeks look hot. Eyes are injected. Has a little diaphoretic at her forehead/hairline. Skin is otherwise warm and dry. She is well-perfused peripherally. Able to examine later where abdomen is soft and without masses. She is mildly tender to palpation suprapubic and right lower quadrant, adnexal area. Heart in regular rate and rhythm. Lungs are clear. Const: Vital Signs, click to edit/add: Vital Signs - 24 hr 01/23/25 02:56 Temperature 97.5 F L Pulse Rate [Left P ulse Oximeter] 77 Respiratory Rate 24 Blood Pressure [Ri ght Upper Arm] 150/80 H Pulse Oximetry 98 Oxygen Delivery Me thod Room Air Documenting provider has reviewed patient's vital signs: yes Course Vital Signs Vital signs: Initial Vital Signs Temperature 97.5 F L 01/23/25 02:56 Temperature Source Temporal Artery Scan 01/23/25 02:56 Pulse Rate 77 01/23/25 02:56 Respiratory Rate 24 01/23/25 02:56 Blood Pressure 150/80 H 01/23/25 02:56 Blood Pressure Mean 103 01/23/25 02:56 Blood Pressure Position Semi-Fowlers 01/23/25 02:56 Pulse Oximetry 98 01/23/25 02:56 Oxygen Delivery Method Room Air 01/23/25 02:56 Vital Signs Temperature 97.5 F L 01/23/25 02:56 Pulse Rate 77 01/23/25 02:56 Respiratory Rate 24 01/23/25 02:56 Blood Pressure 150/80 H 01/23/25 02:56 Pulse Oximetry 98 01/23/25 02:56 Oxygen Delivery Method Room Air 01/23/25 02:56 Temperature 97.5 F L 01/23/25 02:56 Pulse Rate 77 01/23/25 02:56 Respiratory Rate 24 01/23/25 02:56 Blood Pressure 150/80 H 01/23/25 02:56 Pulse Oximetry 98 01/23/25 02:56 Oxygen Delivery Method Room Air 01/23/25 02:56 Medications Administered Medications: Discontinued Medications Generic Name Dose Route Start Last Admin Trade Name Freq PRN Reason Stop Dose Admin Sodium Chloride 1,000 mls @ 1,000 mls/hr 01/23/25 03:15 01/23/25 03:20 0.9 % Sodium Chloride 1000 Ml IV 01/23/25 04:14 1,000 mls/hr .Q1H ONE Administration Ondansetron HCl 4 mg 01/23/25 03:15 01/23/25 03:20 Ondansetron 2 Mg/Ml Inj IVP 01/23/25 03:16 4 mg ONCE ONE Administration Medical Decision Making [facility] Narrative Medical decision making narrative: Will try to offer symptom relief primarily. Etiology likely nonspecific viral illness or combination of related to THC use and social/emotional stressors. Might have hyperchlorhydric stomach in the morning? Initiated IV fluids with normal saline and Zofran. Did manage to locate prior lab records. Only particularly abnormal lab was CRP. Minimally elevated ALT. Renal function looks good. Labs today show mildly elevated white count at 13.5. This is in isolation with other labs looking quite good. Reassuring renal and liver labs. On reassessment is feeling markedly improved. No longer flushed. Looks more comfortable. I do not think any further evaluation is necessary. Tolerating oral intake. See patient discharge plan for further discussion Yes. Certainly many of your symptoms can be caused or contributed to by stress. Your white count was mildly elevated here today but I do not know what that represents in isolation. As discussed you might try taking omeprazole daily for a couple of weeks; up to 40 mg a day. If the ultrasounds are reassuring, nondiagnostic, and your symptoms are continuing, I wonder if the next course of action or next study might be an EGD. Otherwise, marijuana/THC contributes to recurrent episodes of vomiting as well. Consider also other medication effect. And if needed, Zofran from [employer]. Medical Records Medical records reviewed: Yes I reviewed the patient's medical records Lab Data Lab results reviewed: Yes I reviewed the patient's lab results Labs: Lab Results 01/23/25 01/23/25 01/23/25 Range/Units 03:00 03:00 03:00 WBC 13.48 H (4.50-11.00) K/uL RBC 5.38 H (4.00-5.20) m/uL Hgb 15.6 (12.0-16.0) gm/dL Hct 46.6 (33.0-51.0) % MCV 87 (80-100) fL MCH 29 (26-34) pg MCHC 34 (32-36) gm/dL RDW Coeff of Gurjit 13.5 (11.5-15.5) % Plt Count 369 (140-440) K/uL Neut % (Auto) 69.9 (42.0-72.0) % Lymph % (Auto) 18.1 L (20-44) % [place] % (Auto) 5.2 (0.0-11.0) % Eos % (Auto) 5.6 (0.0-7.0) % Baso % (Auto) 0.4 (0.0-3.0) % Neut # (Auto) 9.40 H (1.7-7.0) K/uL Lymph # (Auto) 2.40 (0.90-2.90) K/uL [place] # (Auto) 0.70 (0.00-0.90) K/UL Eos # (Auto) 0.80 H (0.00-0.50) K/uL Baso # (Auto) 0.10 (0.00-0.30) K/uL Abs Immat Gran (auto) 0.10 (0.00-0.30) K/uL Imm/Tot Granulo (auto) 0.8 % Sodium Cancelled 141 Potassium Cancelled 3.4 L Chloride Cancelled Carbon Dioxide Anion Gap BUN Creatinine Estimated Creat Clear Estimated GFR Glucose Calcium Total Bilirubin Direct Bilirubin (0.0-0.5) mg/dL AST ALT Alkaline Phosphatase Total Protein Albumin 01/23/25 01/23/25 01/23/25 Range/Units 03:00 03:00 03:00 WBC (4.50-11.00) K/uL RBC (4.00-5.20) m/uL Hgb (12.0-16.0) gm/dL Hct (33.0-51.0) % MCV (80-100) fL MCH (26-34) pg MCHC (32-36) gm/dL RDW Coeff of Gurjit (11.5-15.5) % Plt Count (140-440) K/uL Neut % (Auto) (42.0-72.0) % Lymph % (Auto) (20-44) % [place] % (Auto) (0.0-11.0) % Eos % (Auto) (0.0-7.0) % Baso % (Auto) (0.0-3.0) % Neut # (Auto) (1.7-7.0) K/uL Lymph # (Auto) (0.90-2.90) K/uL [place] # (Auto) (0.00-0.90) K/UL Eos # (Auto) (0.00-0.50) K/uL Baso # (Auto) (0.00-0.30) K/uL Abs Immat Gran (auto) (0.00-0.30) K/uL Imm/Tot Granulo (auto) % Sodium Potassium Chloride 105 Carbon Dioxide Cancelled 26 Anion Gap Cancelled 10 BUN Cancelled Creatinine Estimated Creat Clear Estimated GFR Glucose Calcium Total Bilirubin Direct Bilirubin (0.0-0.5) mg/dL AST ALT Alkaline Phosphatase Total Protein Albumin 01/23/25 01/23/25 01/23/25 Range/Units 03:00 03:00 03:00 WBC (4.50-11.00) K/uL RBC (4.00-5.20) m/uL Hgb (12.0-16.0) gm/dL Hct (33.0-51.0) % MCV (80-100) fL MCH (26-34) pg MCHC (32-36) gm/dL RDW Coeff of Gurjit (11.5-15.5) % Plt Count (140-440) K/uL Neut % (Auto) (42.0-72.0) % Lymph % (Auto) (20-44) % [place] % (Auto) (0.0-11.0) % Eos % (Auto) (0.0-7.0) % Baso % (Auto) (0.0-3.0) % Neut # (Auto) (1.7-7.0) K/uL Lymph # (Auto) (0.90-2.90) K/uL [place] # (Auto) (0.00-0.90) K/UL Eos # (Auto) (0.00-0.50) K/uL Baso # (Auto) (0.00-0.30) K/uL Abs Immat Gran (auto) (0.00-0.30) K/uL Imm/Tot Granulo (auto) % Sodium Potassium Chloride Carbon Dioxide Anion Gap BUN 15 Creatinine Cancelled 1.0 Estimated Creat Clear Cancelled 69.90 Estimated GFR Cancelled Glucose Calcium Total Bilirubin Direct Bilirubin (0.0-0.5) mg/dL AST ALT Alkaline Phosphatase Total Protein Albumin 01/23/25 01/23/25 01/23/25 Range/Units 03:00 03:00 03:00 WBC (4.50-11.00) K/uL RBC (4.00-5.20) m/uL Hgb (12.0-16.0) gm/dL Hct (33.0-51.0) % MCV (80-100) fL MCH (26-34) pg MCHC (32-36) gm/dL RDW Coeff of Gurjit (11.5-15.5) % Plt Count (140-440) K/uL Neut % (Auto) (42.0-72.0) % Lymph % (Auto) (20-44) % [place] % (Auto) (0.0-11.0) % Eos % (Auto) (0.0-7.0) % Baso % (Auto) (0.0-3.0) % Neut # (Auto) (1.7-7.0) K/uL Lymph # (Auto) (0.90-2.90) K/uL [place] # (Auto) (0.00-0.90) K/UL Eos # (Auto) (0.00-0.50) K/uL Baso # (Auto) (0.00-0.30) K/uL Abs Immat Gran (auto) (0.00-0.30) K/uL Imm/Tot Granulo (auto) % Sodium Potassium Chloride Carbon Dioxide Anion Gap BUN Creatinine Estimated Creat Clear Estimated GFR 79 Glucose Cancelled 138 H Calcium Cancelled 9.7 Total Bilirubin Cancelled Direct Bilirubin (0.0-0.5) mg/dL AST ALT Alkaline Phosphatase Total Protein Albumin 01/23/25 01/23/25 01/23/25 Range/Units 03:00 03:00 03:00 WBC (4.50-11.00) K/uL RBC (4.00-5.20) m/uL Hgb (12.0-16.0) gm/dL Hct (33.0-51.0) % MCV (80-100) fL MCH (26-34) pg MCHC (32-36) gm/dL RDW Coeff of Gurjit (11.5-15.5) % Plt Count (140-440) K/uL Neut % (Auto) (42.0-72.0) % Lymph % (Auto) (20-44) % [place] % (Auto) (0.0-11.0) % Eos % (Auto) (0.0-7.0) % Baso % (Auto) (0.0-3.0) % Neut # (Auto) (1.7-7.0) K/uL Lymph # (Auto) (0.90-2.90) K/uL [place] # (Auto) (0.00-0.90) K/UL Eos # (Auto) (0.00-0.50) K/uL Baso # (Auto) (0.00-0.30) K/uL Abs Immat Gran (auto) (0.00-0.30) K/uL Imm/Tot Granulo (auto) % Sodium Potassium Chloride Carbon Dioxide Anion Gap BUN Creatinine Estimated Creat Clear Estimated GFR Glucose Calcium Total Bilirubin 0.6 Direct Bilirubin 0.4 (0.0-0.5) mg/dL AST Cancelled 33 ALT Cancelled 34 Alkaline Phosphatase Cancelled Total Protein Albumin 01/23/25 01/23/25 01/23/25 Range/Units 03:00 03:00 03:00 WBC (4.50-11.00) K/uL RBC (4.00-5.20) m/uL Hgb (12.0-16.0) gm/dL Hct (33.0-51.0) % MCV (80-100) fL MCH (26-34) pg MCHC (32-36) gm/dL RDW Coeff of Gurjit (11.5-15.5) % Plt Count (140-440) K/uL Neut % (Auto) (42.0-72.0) % Lymph % (Auto) (20-44) % [place] % (Auto) (0.0-11.0) % Eos % (Auto) (0.0-7.0) % Baso % (Auto) (0.0-3.0) % Neut # (Auto) (1.7-7.0) K/uL Lymph # (Auto) (0.90-2.90) K/uL [place] # (Auto) (0.00-0.90) K/UL Eos # (Auto) (0.00-0.50) K/uL Baso # (Auto) (0.00-0.30) K/uL Abs Immat Gran (auto) (0.00-0.30) K/uL Imm/Tot Granulo (auto) % Sodium Potassium Chloride Carbon Dioxide Anion Gap BUN Creatinine Estimated Creat Clear Estimated GFR Glucose Calcium Total Bilirubin Direct Bilirubin (0.0-0.5) mg/dL AST ALT Alkaline Phosphatase 121 Total Protein Cancelled 7.2 Albumin Cancelled 4.5 Discharge Plan Discharge Clinical Impression: Vomiting, Dehydration Patient Disposition: Home w/ Parent or Adult Condition: Improved Additional Instructions: Yes. Certainly many of your symptoms can be caused or contributed to by stress. Your white count was mildly elevated here today but I do not know what that represents in isolation. As discussed you might try taking omeprazole daily for a couple of weeks; up to 40 mg a day. If the ultrasounds are reassuring, nondiagnostic, and your symptoms are continuing, I wonder if the next course of action or next study might be an EGD. Otherwise, marijuana/THC contributes to recurrent episodes of vomiting as well. Consider also other medication effect. And if needed, Zofran from [facility]. Prescriptions: No Action Mirena 21 mcg/24hr (up to 8 yrs) 52 mg intrauterine device 1 device intrauterine ONCE Rx Instructions: as a single dose lamotrigine 200 mg tablet 200 mg PO QDAY vilazodone 10 mg tablet 10 mg PO DAILY hydroxyzine HCl 25 mg tablet 25 - 50 mg PO QPM PRN (Reason: insomnia) cholecalciferol (vitamin D3) 10 mcg (400 unit) capsule 10 mcg PO QDAY Follow Up/Referrals: Isabela Thorpe MD [Primary Care Provider, Obstetrics] Stand Alone Forms: [facility] Info Instructions
[2025-01-23 03:10] LABS: Immature Granulocytes Abs Auto 0.10 K/uL (0.00-0.30); Lymphocytes Absolute Auto 2.40 K/uL (0.90-2.90); Slide Review Reflex No
[2025-01-23] MEDS: ONDANSETRON 2 MG/ML inj 4 MG IVP (03:20)
[2025-01-23 03:30] LABS: Albumin* 4.5 g/dL (3.3-5.0); Anion Gap 10 mEq/L (7-15); Bilirubin Total* 0.6 mg/dL (0.1-1.5); Blood Urea Nitrogen* 15 mg/dL (5-24); Calcium* 9.7 mg/dL (8.4-10.6); Carbon Dioxide* 26 mmol/L (20-32); Chloride* 105 mmol/L (96-114); Creatinine* 1.0 mg/dL (0.5-1.5); Est. Creatinine Clearance* 69.90; Estimated Glomerular Filt Rate 79 ml/min; Glucose* 138 mg/dL (60-115); Potassium* 3.4 mmol/L (3.6-5.1); Sodium* 141 mmol/L (135-149); Total Protein* 7.2 g/dL (6.0-8.3)
[2025-01-23 03:31] LABS: Alanine Aminotransferase* 34 U/L (4-35); Alkaline Phosphatase* 121 U/L (40-150); Aspartate Amino Transferase* 33 U/L (12-35)
[2025-01-23 03:36] LABS: Bilirubin Direct* 0.4 mg/dL (0.0-0.5)
== END 2025-01-23 04:40 | disposition home or self-care (01) ==
PROVIDERS: Emergency Provider Family Medicine; PCP Family Medicine
DX: R11.10 Vomiting, unspecified (principal); E86.0 Dehydration
CPT/HCPCS: 36415; 80048; 80053; 80076; 85025; 96374; 99284; J2405; J7030

== ENCOUNTER 2025-04-13 10:42 | Outpatient (CLI) | payer BC, SELFPAY ==
[2025-04-13 13:00] LABS: Chlamydia DNA Amplified* NOT DETECTED (No Detected); GC DNA Amplified* NOT DETECTED (No Detected)
== END 2025-04-13 10:43 | disposition home or self-care (01) ==
PROVIDERS: PCP Family Medicine; Visit Provider Advanced Practice Midwife
DX: N89.8 Other specified noninflammatory disorders of vagina (principal)
CPT/HCPCS: 81513; 87481; 87491; 87591; 87661

== ENCOUNTER 2025-05-13 04:03 | Emergency (ER) | payer BC, SELFPAY ==
--- OUTSIDE RECORDS SUMMARY | 2025-03-30 14:00 | XMS_ITS | Encounter Summary ---
Author Organization [employer] Address [address] [address] Care Team Providers Care Interventional Sale Consultant Name Role Phone Isabela Thorpe MD Primary Care Provider [phone] Reason for Visit * Reason Comments EATING DISORDER Encounter Details Date Type Department Care Team (Late st Contact Info) Description 03/30/2025 3:00 PM CDT Telemedicine [facility] [address] [place], [place] [id number] Perri Aguilar MA, [facility] [address] [place] [address] Other specified eating disorder (Primary Dx); Mixed obsessional thoughts and acts; Bipolar 2 disorder (HRC) Social History Tobacco Use Types Packs/Day Years Used Date Smoking Tobacco: Never Alcohol Use Standard Drinks/Week Comments Never 0 (1 standard drink = 0.6 oz pur e alcohol) Humiliation, Afraid, Rape, and Kick questionnair e Answer Date Recorded Within the last year, have y ou been afraid of your partner or ex-partner? No 02/16/2025 Within the last year, have y ou been humiliated or emotionally abused in other ways by your partner or ex-partner? No Within the last year, have y ou been kicked, hit, slapped, or otherwise physically hurt by your partner or ex-partner? No 02/16/2025 Within the last year, have y ou been raped or forced to have any kind of sexual activity by your partner or ex-partner? No 02/16/2025 Hunger Vital Sign Answer Date Recorded Within the past 12 months, y ou worried that your food would run out before you got the money to buy more. Sometimes true Within the past 12 months, t he food you bought just didn't last and you didn't have money to get more. Sometimes true 04/2025 PRAPARE - Transportation Answer Date Re corded In the past 12 months, has l ack of transportation kept you from medical appointments or from getting medications? No 02/06 In the past 12 months, has l ack of transportation kept you from meetings, work, or from getting things needed for daily living? No 02/16/2025 Housing Stability Vital Sign Answer Dakota e Recorded In the last 12 months, was t here a time when you were not able to pay the mortgage or rent on time? No 02/16/2025 Number of Times Moved in the Last Year Not on fi le 02/16/2025 At any time in the past 12 m [facility], were you homeless or living in a [facility]p (including now)? No 02/16/2025 [facility] Utilities Answer Date Recorded In the past 12 months has th e [place], gas, oil, or water [employer] threatened to shut off services in your home? No 02/16/2025 Comments No Sex and Gender Information Value Date Recorded Sex Assigned at Not on file Legal Sex Female 4:38 PM CDT Gender Identity Not on file Sexual Orientation Not on file documented as of this encounter Progress Notes * Perri Aguilar MA, [facility] - 03/30/2025 3:00 PM CDT [facility] Psychotherapy Progress Note DIAGNOSIS: 1. Other specified eating disorder 2. Mixed obsessional thoughts and acts 3. Bipolar 2 disorder (HRC) Level of Care: Outpatient (OP) - [place] Initial Assessment Date: 02/16/25 Initial Assessment Completed By: Michelle Gilliland MD Video Visit: This appointment was conducted via telehealth (video) as it is the patient's preference and it is appropriate for the treatment being provided. Patient location: home, Clinician location: clinic. Start Time: 3:01pm End Time: 3:51pm Eating Disorder Symptom Review Treatment History: Patient was in [facility] for 10 days Symptom History (if different from current symptom presentation): restriction Current Symptoms (ex: frequency, symptom changes, etc): inconsistent eating, dichotomous thoughts about food, poor body image Current Height and Weight: 02/24/2025 6:00 AM 03/20/2025 1:56 PM 04/10/2025 11:28 AM Height & Weight Weight in lbs 210 lb 12.2 oz 205 lb 9.6 oz 203 lb 9.6 oz Weight in kg 95.6 kg 93.26 kg 92.352 kg Height in cm 160 cm 160 cm Height in ft / in 5' 2.874 5' 2.874 Goal weight: 04/04/2025 4:33 PM [place] GOAL WEIGHT Goal Weight Natural weight with normal eating and activity. Would anticipate some weight confucianism with recent restrictive eating patterns. Intervention Method Treatment Modality: CBT and DBT and supportive therapy Phase of Treatment (if applicable): n/a Session #: 4 Present in session: patient was seen alone Patient shared that she is noticing that she is eating more fast food recently and she is worried about relying on fast food. Paper Sealer helped patient challenge her thoughts on good food versus bad foodand patient verbalized that this was helpful. Patient went on to share that she is having trouble eating in general. She shared that her anxiety spikes and makes it hard to swallow food. Patient shared that some of her anxiety is coming from her expectations of herself and play writer held space for patient to share those expectations and then began challenging them with patient. Mental Status Exam Mood: within normal limits Affect: mood-congruent Appearance: within normal limits and age appropriate Outcome Measures 02/24/2025 8:26 AM 02/23/2025 2:22 PM 02/22/2025 8:39 PM Outcome Measures PHQ-9 Score 9 LEÓN-7 Score 6 [place] Score Moderate Moderate BMI BMI Readings from Last 1 Encounters: 04/10/25 36.21 kg/m?? Treatment Goals Increase regular eating: Continue Symptom interruption: Continue Increase readiness for treatment: Continue Increase effective use of coping strategies: Continue Improve body image: Continue Psychotherapy Follow-up Plan: Individual therapy, frequency of sessions weekly Treatment Team Follow-up: Dietetic follow-up and MD follow-up Anticipated Treatment Length (time range or session range): 6-12 months Anticipated Discharge Plan and Date (if known): TBD ALLY RESPONSIBLE INVESTMENT ADVISER documented in this encounter Plan of Treatment Upcoming Encounters Date Type Department Care Team (Late st Contact Info) Description 05/19/2025 12:00 PM SOCIALLY RESPONSIBLE INVESTMENT ADVISER Telemedicine [facility] [address] [place] [address] Perri Aguilar MA, [facility] [address] [place] [address] documented as of this encounter Visit Diagnoses Diagnosis Other specified eating disorder- Primary Mixed obsessional thoughts and acts Bipolar 2 disorder (HRC) Other bipolar disorders documented in this encounter Care Teams Interventional Sale Consultant Relationship Specialty Start Date End Date Isabela Thorpe MD [address] [place] [address] PCP - General Obstetrics Gynecology 02/15/25 documented as of this encounter
--- OUTSIDE RECORDS SUMMARY | 2025-04-04 14:30 | XMS_ITS | Encounter Summary ---
Author Organization [employer] Address [address] [address] Care Team Providers Care Client Care Consultant Name Role Phone Isabela Thorpe MD Primary Care Provider [phone] Reason for Visit * Reason Comments EATING DISORDER Encounter Details Date Type Department Care Team (Late st Contact Info) Description 04/04/2025 3:30 PM CDT Telemedicine [facility] [address] [place] [address], [address] [place] [address] Katherine Cardona, KELSEAN, LD [address] [facility] [address] [place], [place] [id number] Other specified eating disorder (Primary Dx) Social History Tobacco Use Types Packs/Day Years [...] any time in the past 12 m [facility], were you homeless or living in a penitentiary (including now)? No 02/16/2025 [facility] Utilities Answer Date Recorded In the past 12 months has th e electric, gas, oil, or water company threatened to shut off services in your home? No 02/16/2025 Comments No Sex and Gender Information Value Date Recorded Sex Assigned at Not on file Legal Sex Female 4:38 PM CDT Gender Identity Not on file Sexual Orientation Not on file documented as of this encounter Progress Notes * Katherine Cardona, ZAK, LD - 04/04/2025 3:30 PM CDT [facility] NUTRITION INITIAL ASSESSMENT Date of Service: 04/04/2025 Start Time: 3:30 pm End Time: 4:17 pm Patient Location/Level of Care: Outpatient (OP) - [place] I discussed with the patient/parent that this visit is a telehealth visit that will be billed to their insurance. Reviewed potential benefits, risks and confidentiality of telehealth visits. Confirmed patients' current location and contact information. Verified safety plan to be used in the event of an emergency or safety concerns. Made contingency plan in the event of technical problems. Explained that the appropriateness of telehealth visits is determined by the provider and that patient may need to be seen in clinic in the future. This visit was conducted via This visit was conducted via video. Location of clinician: clinic Location of patient: other car - stationary, confirmed in [place] Assessment Data Date of Initial Assessment: 02/16/25 Initial Assessment Completed By: Michelle Gilliland MD Location of Initial Assessment: [facility] Diagnosis: 1. Other specified eating disorder Treatment Modality: TBD by Therapist Anticipated Treatment Length (time range or session range): TBD Phase of Treatment: outpatient - assessment Session #: 1 Prior eating disorder treatment: Yes, IR 02/16-02/24/25 for regulation of eating patterns Social History: The patient currently lives with roommate in apartment in [place], [place]. Moving back in with mom due to really struggling after leaving , will be moving on 04/07. The patient is currently employed: Yes, [employer], technically part-time but mostly works full-time hours. Hobbies and interests include nothing right now - really stressed out and tired/low energy. Plansto restart yoga and join a book club. Mom has a dog she wants to walk with. Started dating someone. Food and Security Within the past 12 months, were you worried that your food would run out before you had money to buy more? Yes Within the past 12 months, has food you purchased run out and you didn't have money to get more? No States she won't have any food security concerns once moving back in with mom. Encouraged patient to discuss in future appointments as needed. Barriers to Recovery: Pre-contemplation/Contemplation stage of change Weight History/Patterns: Per IA, She recalls being at a stable weight around 150 lbs in teens. Gained a little bit of weightwhen she started medication--Vraylar--but because it was effective they continued this. Estimates that she went from 150 lbs to 170 lbs, around 2021. She is uncertain of the timeline that weight increased further, pt thinks this is likely in the last year. December 03, 2024, reported weight was 232 lbs. Current weight is 207 lbs, representing a weight loss of 25 lbs in 2.5 months. High weight: 232# (age 29#) Low weight: 150# (late teens to early 20s) Weighing self at the beginning of each session with therapist. Plans to have mom handle scale when moving back home. Current Height and Weight: 03/20/25 : 1.597 m (5' 2.87) Wt Readings from Last 3 Encounters: 03/20/25 93.3 kg (205 lb 9.6 oz) 02/24/25 95.6 kg (210 lb 12.2 oz) 02/16/25 93.9 kg (207 lb) BMI Readings from Last 1 Encounters: 03/20/25 36.57 kg/m?? Goal Weight Range: . Natural weight with normal eating and activity. Would anticipate some weight confucianism with recent restrictive eating patterns. Body Image/Body Satisfaction Personal Goal Weight or Size: not assessed What percentage of the day are you thinking about your weight and/or body shape? - at least half the day Body Checking Behaviors: mirror checking, pinching skin/moving skin around, checking to make sure she doesn't look too sick Growth Charts: Growth charts in Media tab Menstrual Period: Patient's last menstrual period was 03/18/2025. Comments: IUD - plans to have it removed, sterilized in November. Some form of control since age 20. Was very heavy and irregular prior to starting control. Dietary Factors Food Allergies: None identified Food Intolerances: Lactose - will occasionally eat ice cream otherwise will use oatmilk for milk, OK for yogurt/kefir, cheese is usually OK None identified Dental and Gastrointestinal Concerns Issues impacting eating: No Dental work: None Gastrointestinal issues: Colonoscopy and upper endoscopy - negative for Celiac when tested Diarrhea - BM at least 2x/day since restricting. Shared regular BM 1x/day when eating consistently in IR. Eating Pattern Wake up at 2:30 am for work Breakfast (~10 am): mini muffin pack OR couple granola bars AM Snack: skip Lunch: skip PM Snack: skip Dinner (sometime between 3:30-7:30 pm): spaghettios, fruit, magdalena crackers and strawberry cream cheese Evening Snack: skip Fluid Intake: water (32-40 oz/day), juice, liquid IV Assessment of current intake: inadequate energy intake Dislikes: tomatoes (sauce ok), mushrooms, couscous Safe foods - fruit with fruit dip or nutella or PB, magdalena crackers and strawberry cream cheese Need to eat the most nutrient dense foods if she is going to eat - ie, instead of a chewy bar needsto have a larabar (healthier, nutrient-rich) Shares she has been experiencing food aversions and has a hard time deciding sounds good/what sheis going to eat. Shame around people knowing she is eating. Fears people won't know she was sick if she starts eating consistently again. Eating Environment: Place(s) patient eats meals/snacks: bedroom or work People with whom patient eats: typically alone, sometimes with mom Meal planning: patient, mom will assist when she moves back in with her Grocery Shopping: patient and mom Cooking: mom will likely be doing most of the cooking Current Eating Disorder Symptoms Restricting: Food rules: Yes, Contamination OCD - don't eat big cuts of meat (only eat processed or cured meats), don't eat for a couple hours before bed, eat foods 1 at a time from least favorite to most favorite, doesn't want to contribute to food waste and feels guilty if doesn't finish the plate, fill up beverage before food Skip meals: Yes, only eating ~1 small meal/day Eat less overall: Yes, really only snacking on small portions of food Fasting: No Count calories: Yes and no. Shares she doesn't count though is aware of them and glances sometimes on the label. Doesn't like the thought of eating more than 1200 kcal/day. Hide, throw away, smear, pick at: No Chewing/spitting: No Mosque-driven eating: No Vegan/vegetarian: No Diets/programs: No Patient reported the following: - Restricting food or under-weight: Current, Past - Hiding food: Never Binge Eating: No Compensatory Behaviors: No Exercise: Exercise done specifically to affect weight and/or shape: no Type and duration of exercise: On her feet a lot at work Move ring 700 kcal - hitting this at work Gym membership a few years ago and felt movement was more compulsive but denies this currently and no longer has a gym membership. Diagnosis Specific Questions: None Nutrition Plan of Care and Intervention: Met with ministerio for nutrition assessment. Completed nutrition assessment, pt discussed Hx of ED, current eating habits and Sx use. Described RD's role as a member of the treatment team. Discussed benefits of consistent meals and snacks for regulation of hunger /fullness cues. Discussed all foods fit philosophy. Initial Meal Plan: Regular eating to facilitate normalization of eating patterns - 3 balanced meals and snacks per dayand symptom interruption Goals: Future goals will be in conjunction with the Individual Treatment Plan (ITP) once established. Stabilization of eating patterns - 3 balanced meals and snacks per day 1:1 Nutrition education/nutrition groups Treatment Plan and Follow-up: Weekly sessions with RD until otherwise indicated Katherine Cardona RDN, LD documented in this encounter Plan of Treatment Upcoming Encounters Date Type Department Care Team (Late st Contact Info) Description 05/19/2025 12:00 PM GRINDING MILL OPERATOR Telemedicine [facility] [address] [place] [address] Perri Aguilar MA, [facility] [address] [place] [address] documented as of this encounter Visit Diagnoses Diagnosis Other specified eating disorder- Primary documented in this encounter Care Teams Client Care Consultant Relationship Specialty Start Date End Date Isabela Thorpe MD [address] [place] [address] PCP - General Obstetrics Gynecology 02/15/25 documented as of this encounter
--- OUTSIDE RECORDS SUMMARY | 2025-04-06 14:00 | XMS_ITS | Encounter Summary ---
Author Organization [employer] Address [address] [address] Care Team Providers Care Floor Broker Name Role Phone Isabela Thorpe MD Primary Care Provider [phone] Reason for Visit * Reason Comments EATING DISORDER Encounter Details Date Type Department Care Team (Late st Contact Info) Description 04/06/2025 3:00 PM CDT Telemedicine [facility] [address] [place], [place] [address] Perri Aguilar MA, [facility] [address] [place] [address] Other specified eating disorder (Primary Dx); Mixed [...] any time in the past 12 m [facility], were you homeless or living in a residential (including now)? No 02/16/2025 [facility] Utilities Answer Date Recorded In the past 12 months has th e [employer], gas, oil, or water [employer] threatened to shut off services in your home? No 02/16/2025 Comments No Sex and Gender Information Value Date Recorded Sex Assigned at Not on file Legal Sex Female 4:38 PM CDT Gender Identity Not on file Sexual Orientation Not on file documented as of this encounter Progress Notes * Perri Aguilar MA, [facility] - 04/06/2025 3:00 PM CDT [facility] Psychotherapy Progress Note DIAGNOSIS: 1. Other specified eating disorder 2. Mixed obsessional thoughts and acts 3. Bipolar 2 disorder (HRC) Level of Care: Outpatient (OP) - [place] Initial Assessment Date: 02/16/25 Initial Assessment Completed By: Michelle Gilliland MD Video Visit: This appointment was conducted via telehealth (video) as it is the patient's preference and it is appropriate for the treatment being provided. Patient location: home, Clinician location: clinic. Start Time: 3:00 End Time: 3:54pm Eating Disorder Symptom Review Treatment History: Patient was in [facility] for 10 days Symptom History (if [...] 5' 2.874 Goal weight: 04/04/2025 4:33 PM [place] GOAL WEIGHT Goal Weight Natural weight with normal eating and activity. Would anticipate some weight moravian with recent restrictive eating patterns. Intervention Method Treatment Modality: CBT and DBT and supportive therapy Phase of Treatment (if applicable): n/a Session #: 5 Present in session: patient was seen alone Patient was distressed in session. She shared that she is really struggling to eat and is afraid that she will be sent back to a higher level of care. She shared that her skin picking and body checking have increased and she is mad at herself because she knows that she is doing damage to her body but is struggling to make changes. Machine Stemmer provided validation and support as patient shared her anxieties. Then administrative underwriter helped patient check the facts on her symptoms and the recommendations of the doctor. Machine Stemmer and patient worked together on some anxiety reduction techniques and helped patient with self compassion. Patient verbalized that she would try the anxiety reduction techniques this week. Mental Status Exam Mood: within normal limits Affect: mood-congruent Appearance: within normal limits and age appropriate Outcome Measures 02/24/2025 8:26 AM 02/23/2025 2:22 PM 02/22/2025 8:39 PM Outcome Measures PHQ-9 Score 9 LEÓN-[address] [place] Score Moderate Moderate BMI BMI Readings from [...] Discharge Plan and Date (if known): TBD Electronically signed by Perri Aguilar MA, [facility] at 04/17/2025 9:55 AM SPRING MAKER documented in this encounter Plan of Treatment Upcoming Encounters Date Type Department Care Team (Late st Contact Info) Description 05/19/2025 12:00 PM SPRING MAKER Telemedicine [facility] [address] [place] [address] Perri Aguilar MA, [place] [id number] [place] [address] documented as of this encounter Visit Diagnoses Diagnosis Other specified eating disorder- Primary Mixed obsessional thoughts and acts Bipolar 2 disorder (HRC) Other bipolar disorders documented in this encounter Care Teams Floor Broker Relationship Specialty Start Date End Date Isabela Thorpe MD [address] [place] [address] PCP - General Obstetrics Gynecology 02/15/25 documented as of this encounter
--- OUTSIDE RECORDS SUMMARY | 2025-04-10 11:20 | XMS_ITS | Encounter Summary ---
Author Organization [facility] [employer] Address [address], [place] [address] Care Team Providers Care Director Labor Standards Name Role Phone Isabela Thorpe MD Primary Care Provider [phone] Reason for Visit * Reason Comments EATING DISORDER Encounter Details Date Type Department Care Team (Late st Contact Info) Description 04/10/2025 11:20 AM ENTERPRISE ACCOUNT EXECUTIVE Office Visit [facility] [address] [place] [address], [address] [place] [address] Michelle Gilliland MD [address] [facility] [address] [place], [place] [id number] Other specified eating disorder (Primary Dx); Mixed [...] any time in the past 12 m [facility], were you homeless or living in a care home (including now)? No 02/16/2025 [facility] Utilities Answer Date Recorded In the past 12 months has th e [employer], gas, oil, or water [employer] threatened to shut off services in your home? No 02/16/2025 Comments No Sex and Gender Information Value Date Recorded Sex Assigned at Not on file Legal Sex Female 4:38 PM CDT Gender Identity Not on file Sexual Orientation Not on file documented as of this encounter Last Filed Vital Signs Vital Sign Reading Time Taken Comments Blood Pressure 132/73 04/10/2025 11:29 AM ENTERPRISE ACCOUNT EXECUTIVE Pulse 90 04/10/2025 11:29 AM ENTERPRISE ACCOUNT EXECUTIVE Temperature - - Respiratory Rate - - Oxygen Saturation - - Inhaled Oxygen Concentration - - Weight 92.4 kg (203 lb 9.6 oz) 04/10/2025 11:28 AM ENTERPRISE ACCOUNT EXECUTIVE Height 159.7 cm (5' 2.87) 04/10/2025 11:28 AM Saman MOE Body Mass Index 36.21 04/10/2025 11:28 AM ENTERPRISE ACCOUNT EXECUTIVE documented in this encounter Progress Notes * Carter Goldstein - 04/10/2025 11:20 AM CSTAddended by: CARTER GOLDSTEIN on: 04/10/2025 11:56 AM Modules accepted: Orders RPRISE ACCOUNT EXECUTIVE * Michelle Gilliland MD - 04/10/2025 11:[address] [facility] Outpatient Medical Progress Note Date: 04/10/2025 Name: Ministerio Paniagua : 1995 Age: 29 y.o. Chief Complaint: Outpatient follow up regarding their eating disorder. HPI: Eating disorder: Chart notes reviewed. [place] Feb 2025 with diagnosis of OSFED. Brief IR stay for symptom interruption to re-establish regular eating patterns in February. Since last visit, eating overall has been not good. Has eaten at least something every day, but significantly restrictive at times. Moved back home with parents on . Leading up to the moveshe was not eating well, not preparing for the move. Met with RD who recommended midday eating instead of just eating in AM and PM only. Had a couple of bites of [employer] and felt so distressed that she became tearful. Didn't eat the day of the move because she was so busy. Ultimately mom encouraged her to eat, and was able to have two sandwiches and some fries from [employer]. Did not eat the remainder of the day. Thursday night mom made dinner and she was able to have this. 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 Thursday AM unintentionally had vomiting. Attributed this to poor eating and getting very little sleep the night before. Last night took trazodone and fluvoxamine and again had vomiting. Had applesauce and toast and felt better, so then had portion of dinner. This morning appetite was improved. Eating with family has been a big help. Mood--overall pretty lethargic. Has been really down, isolating more. No safety concerns, but noticing apathy. Has noticed more conscious eating disorder thoughts, e.g. tracking down scale after mom packed thisaway. Doing some body checking. LMP:Patient's last menstrual period was 03/18/2025. Digestion issues: as above Activity: working. Mood: as above SIB: none HARITHA: none Physical Exam: 04/10/2025 11:28 AM 04/10/2025 11:29 AM Vitals Pulse 83 90 Patient's Position during Vital Signs Supine Standing BP 128/69 132/73 04/10/2025 11:28 AM Height & Weight Weight in lbs 203 lb 9.6 oz Weight in kg 92.352 kg Height in cm 160 cm Height in ft / in 5' 2.874 Wt Readings from Last 3 Encounters: 04/10/25 92.4 kg (203 lb 9.6 oz) 03/20/25 93.3 kg (205 lb 9.6 oz) 02/24/25 95.6 kg (210 lb 12.2 oz) Estimated body mass index is 36.21 kg/m?? as calculated from the following: Height as of this encounter: 1.597 m (5' 2.87). Weight as of this encounter: 92.4 kg (203 lb 9.6 oz). Normalized BMI data available only for age 0 to 20 years. 04/04/2025 4:33 PM [place] GOAL WEIGHT Goal Weight Natural weight with normal eating and activity. Would anticipate some weight methodist with recent restrictive eating patterns. BMI Readings from Last 1 Encounters: 04/10/25 36.21 kg/m?? GENERAL: no acute distress, cooperative to examination. HEAD/ENT/MOUTH: NCAT MS/EXTREM: normal gait, extremities normal, atraumatic, no cyanosis or edema SKIN: dry, no lesions or rashes NEURO: alert, oriented to situation, moves all extremities, no involuntary movements PSYCH: full range of affect Diagnostics: EKG from 02/16/25 reviewed. Lab results: From 02/23/25 reviewed. Labs/EKG ordered: yes. Problems addressed: 1. Other specified eating disorder 2. Mixed obsessional thoughts and acts 3. Bipolar 2 disorder (HRC) Plan: Reviewed clinical status. Continue to work toward consistent eating patterns. Noticing recentimprovement with family support. Suspect nausea is exacerbated by restriction. Labs today. Weight down-trending. Discussion/decision regarding admission to our partial hospitalization program (PHP), intensive residential program (IR) or residential program (RES): no. Mood: Reports more depression symptoms, isolation, apathy. States to no safety concerns. Aware of role of restriction in worsened mental health. Continue with your current psych medications. Follow up with psychiatry as directed for mood and psychotropic medication management. Decision/discussion/plan regarding levels of care/treatment: Continue to work on developing and utilizing healthy coping skills and moving away from the eating disorder. Continue to assess appropriate level of care. Continue to update team and coordinate care as needed. Follow up in 3 weeks, or sooner prn. RPRISE ACCOUNT EXECUTIVE documented in this encounter Plan of Treatment Upcoming Encounters Date Type Department Care Team (Late st Contact Info) Description 05/19/2025 12:00 PM ENTERPRISE ACCOUNT EXECUTIVE Telemedicine [facility] [address] [place] [address] Perri Aguilar MA, [facility] [address] [place] [address] documented as of this encounter Procedures Procedure Name Priority Date/Time Associated Diagnosis Comments COMPREHENSIVE METABOLIC PANEL Routine 04/10/2025 11:56 AM ENTERPRISE ACCOUNT EXECUTIVE Other specified eating disorder PHOSPHORUS Routine 04/10/2025 11:56 AM ENTERPRISE ACCOUNT EXECUTIVE Other specified eating disorder documented in this encounter Results * Phosphorus (04/10/2025 11:56 AM ENTERPRISE ACCOUNT EXECUTIVE) Phosphorus 3.3 2.3 - 4.7 mg/dL 04/10/2025 8:11 PM ENTERPRISE ACCOUNT EXECUTIVE [facility] Blood Venipuncture / Unknown 04/10/2025 11:56 AM ENTERPRISE ACCOUNT EXECUTIVE 04/10/2025 4:55 PM ENTERPRISE ACCOUNT EXECUTIVE us Michelle Gilliland MD LAB_1 Final Result [facility] CLIA: [id number] [address] [id number] * (ABNORMAL) Comp Metabolic Panel (04/10/2025 11:56 AM ENTERPRISE ACCOUNT EXECUTIVE) Sodium 141 136 - 145 mmol/L 04/10/2025 8:11 PM [facility] Potassium 4.1 3.5 - 5.1 mmol/L 04/10/2025 8:11 PM [facility] Chloride 105 98 - 109 mmol/L 04/10/2025 8:11 PM [facility] CO2 25 20 - 29 mmol/L 04/10/2025 8:11 PM [facility] Anion Gap 11 6 - 16 mmol/L 04/10/2025 8:11 PM [facility] Calcium 9.4 8.4 - 10.4 mg/dL 04/10/2025 8:11 PM [facility] BUN 6(L) 7 - 26 mg/dL 04/10/2025 8:11 PM [facility] Creatinine 0.94 0.55 - 1.02 mg/dL 04/10/2025 8:11 PM [facility] Alkaline Phosphatase 106 40 - 150 U/L 04/10/2025 8:11 PM [facility] AST (SGOT) 24 16 - 46 U/L 04/10/2025 8:11 PM [facility] ALT (SGPT) 22 0 - 55 U/L 04/10/2025 8:11 PM [facility] Bilirubin, Total 0.2 0.2 - 1.2 mg/dL 04/10/2025 8:11 PM [facility] Protein, Total 6.8 6.4 - 8.3 g/dL 04/10/2025 8:11 PM [facility] Albumin 4.2 3.5 - 5.0 g/dL 04/10/2025 8:11 PM [facility] Glucose 85 70 - 100 mg/dL 04/10/2025 8:11 PM [facility] Comment:The given reference range is for the fasting state. Non-fasting reference range for glucose is 70 - 180 mg/dL. GFR, Estimated >60 >60 mL/min/1.7 3m2 04/10/2025 8:11 PM ENTERPRISE ACCOUNT EXECUTIVE [facility] Hours Fasting 0.0 8 - 12 Hours 04/10/2025 8:11 PM [facility] Comment:Patient has indicate d a non-fasting status. Blood Venipuncture / Unknown 04/10/2025 11:56 AM ENTERPRISE ACCOUNT EXECUTIVE 04/10/2025 4:55 PM ENTERPRISE ACCOUNT EXECUTIVE us Michelle Gilliland MD LAB_1 Final Result [facility] CLIA: [id number] [address] documented in this encounter Visit Diagnoses Diagnosis Other specified eating disorder- Primary Mixed obsessional thoughts and acts Bipolar 2 disorder (HRC) Other bipolar disorders documented in this encounter Care Teams Director Labor Standards Relationship Specialty Start Date End Date Isabela Thorpe MD [address] [place] [address] PCP - General Obstetrics Gynecology 02/15/25 documented as of this encounter
--- OUTSIDE RECORDS SUMMARY | 2025-04-13 16:00 | XMS_ITS | Encounter Summary ---
Author Organization [employer] Address [address] [address] Care Team Providers Care Cdl Driver Name Role Phone Isabela Thorpe MD Primary Care Provider [phone] Reason for Visit * Reason Comments EATING DISORDER Encounter Details Date Type Department Care Team (Late st Contact Info) Description 04/13/2025 4:00 PM HAND ORNAMENT MAKER Telemedicine [facility] [address] [place], [place] [address] Perri Aguilar MA, [facility] [address] [facility] [address] [place] [address] Other specified eating disorder (Primary Dx); Bipolar 2 disorder (HRC); Mixed obsessional thoughts and acts Social History Tobacco Use Types Packs/Day Years [...] any time in the past 12 m [facility], were you homeless or living in a care home (including now)? No 02/16/2025 [facility] Utilities Answer Date Recorded In the past 12 months has th e [employer], gas, oil, or water [employer] threatened to shut off services in your home? No 02/16/2025 Comments No Sex and Gender Information Value Date Recorded Sex Assigned at Not on file Legal Sex Female 4:38 PM CDT Gender Identity Not on file Sexual Orientation Not on file documented as of this encounter Progress Notes * Perri Aguilar MA, [facility] - 04/13/2025 4:00 PM CST [facility] Progress Note DIAGNOSIS: 1. Other specified eating disorder 2. Bipolar 2 disorder (HRC) 3. Mixed obsessional thoughts and acts Level of Care: Outpatient (OP) - [place] Initial Assessment Date: 02/16/25 Initial Assessment Completed By: Michelle Gilliland MD Video Visit: This appointment was conducted via telehealth (video) as it is the patient's preference and it is appropriate for the treatment being provided. Patient location: home, Clinician location: clinic. Start Time: 4:02pm End Time: 4:52pm Eating Disorder Symptom Review Treatment History: Patient was in [facility] for 10 days Symptom History [...] 5' 2.874 Goal weight: 04/04/2025 4:33 PM [place] GOAL WEIGHT Goal Weight Natural weight with normal eating and activity. Would anticipate some weight orthodox with recent restrictive eating patterns. Intervention Method Treatment Modality: CBT and DBT and supportive therapy Phase of Treatment (if applicable): n/a Session #: 6 Present in session: patient was seen alone Patient shared that she successfully moved home with her mom and is happy about that. However, she is still struggling to eat an dis worried about re-feeding syndrome. Behavioral Psychologist asked patient to share what Dr Gilliland said about re-feeding syndrome in her most recent appointment and patient shared that there wasn't a concern right now. Behavioral Psychologist encouraged patient to eat regularly and eat a full plate and if she feels any significant symptoms to go to the emergency department. Patient verbalized agreement. 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 Mental Status Exam Mood: within normal limits Affect: mood-congruent Appearance: within normal limits and age appropriate Outcome Measures 02/24/2025 8:26 AM 02/23/2025 2:22 PM 02/22/2025 8:39 PM Outcome Measures PHQ-9 Score 9 LEÓN-7 Score 6 [place] Score Moderate Moderate BMI BMI Readings from [...] Discharge Plan and Date (if known): TBD ORNAMENT MAKER documented in this encounter Plan of Treatment Upcoming Encounters Date Type Department Care Team (Late st Contact Info) Description 05/19/2025 12:00 PM HAND ORNAMENT MAKER Telemedicine [facility] [address] [place] [address] Perri Aguilar MA [facility] [address] [place] [address] documented as of this encounter Visit Diagnoses Diagnosis Other specified eating disorder- Primary Bipolar 2 disorder (HRC) Other bipolar disorders Mixed obsessional thoughts and acts * Plan of Care - Perri Aguilar MA [facility] - 04/13/2025 4:00 PM CST [facility] Plan Name: Ministerio Paniagua : 1995 Patient Location/Level of Care: Outpatient (OP) - [place] Diagnoses: 1. Other specified eating disorder 2. Bipolar 2 disorder (HRC) 3. Mixed obsessional thoughts and acts Target problems/Symptoms/Needs as identified in DA: Eating Disorder Symptoms: subjective binge eating , objective binge , restricting , and over-focus on shape/weight Psychiatric Symptoms: Depression and Suicidal thoughts/threats Needs/vulnerabilities: none at this time Strengths: Currently employed and Good family/social support system Patient's identified recovery goal(s): Patient wants to recover from her eating disorder Expected Outcome & Prognosis: Relieve acute symptoms, return to baseline functioning Treatment Plan Objectives: Problem: OBSESSIVE COMPULSIVE DISORDER Dates: Start: 04/17/25 Disciplines: PRACTITIONER Goal: Reduce rituals/compulsive behaviors Dates: Start: 04/17/25 Expected End: 04/17/26 Description: Objectives: Other OCD objective: will start to identify rituals and compulsive behaviors. Intervention methods used to meet goal: CBT, DBT, and Supportive psychotherapy Progress towards goal: New goal Disciplines: PRACTITIONER Goal: Reduce intrusive obsessional thoughts Dates: Start: 04/17/25 Expected End: 04/17/26 Description: Objectives: Patient will self-report the use of 1 cognitive behavior strategies. Intervention methods used to meet goal: CBT, DBT, and Supportive psychotherapy Progress towards goal: New goal Disciplines: PRACTITIONER Problem: OSFED Dates: Start: 04/17/25 Disciplines: PRACTITIONER Goal: Establish regular eating patterns Dates: Start: 04/17/25 Expected End: 04/17/26 Description: Objectives: Patient will eat three (3) meals and 3 snacks per day. Intervention methods used to meet goal: CBT, DBT, and Supportive psychotherapy Progress towards goal: New goal Disciplines: PRACTITIONER Goal: Expand flexibility in eating behaviors Dates: Start: 04/17/25 Expected End: 04/17/26 Description: Objectives: Patient will increase problem solving ability in situations involving food. Intervention methods used to meet goal: CBT, DBT, and Supportive psychotherapy Progress towards goal: New goal Disciplines: PRACTITIONER Goal: Weight stabilization Dates: Start: 04/17/25 Expected End: 04/17/26 Description: Objectives: Other OSFED objective: Patient will allow weight to stabilize with normative eating patterns Intervention methods used to meet goal: CBT, DBT, and Supportive psychotherapy Progress towards goal: New goal Disciplines: PRACTITIONER Goal: Decrease binge eating Dates: Start: 04/17/25 Expected End: 04/17/26 Description: Objectives: Patient will identify 3 alternatives to binge eating. Intervention methods used to meet goal: CBT, DBT, and Supportive psychotherapy Progress towards goal: New goal Disciplines: PRACTITIONER Goal: Decrease restricting Dates: Start: 04/17/25 Expected End: 04/17/26 Description: Objectives: Patient will eat three (3) meals and 3 snacks per day. Intervention methods used to meet goal: CBT, DBT, and Supportive psychotherapy Progress towards goal: New goal Disciplines: PRACTITIONER Goal: Decrease body awareness Dates: Start: 04/17/25 Expected End: 04/17/26 Description: Objectives: Other OSFED objective: Patient will identify negative thoughts about her body and work in session to challenge those thoughts. Intervention methods used to meet goal: CBT, DBT, and Supportive psychotherapy Progress towards goal: New goal Disciplines: PRACTITIONER Goal: Decrease eating disorder thoughts Dates: Start: 04/17/25 Expected End: 04/17/26 Description: Objectives: Patient to complete self-monitoring records 1 times a day to assist in identifying patterns, behaviors, emotions that lead to eating disorder behaviors. Intervention methods used to meet goal: CBT, DBT, and Supportive psychotherapy Progress towards goal: New goal Disciplines: PRACTITIONER Treatment Details: Type of Service Frequency Resolution Date Psychotherapy with patient, 45 minutes 1 Time per week 12 Month: 04/17/2026 Family/Support System Involvement: Family/Support System will not be involved in treatment: reason(s) - patient is an adult. Other relevant cultural considerations/influences: none at this time Other relevant psychosocial considerations: none at this time This ITP was developed with participation with the patient and/or guardian: Yes this ITP was developed with the patient via video during session on 04/13/25. Provider's Signature and Date: 04/13/25 Client/Patient Signature and Date: 04/13/25 ORNAMENT MAKER documented in this encounter Care Teams Cdl Driver Relationship Specialty Start Date End Date Isabela Thorpe MD [address] [place] [address] PCP - General Obstetrics Gynecology 02/15/25 documented as of this encounter
--- OUTSIDE RECORDS SUMMARY | 2025-04-18 16:00 | XMS_ITS | Encounter Summary ---
Author Organization [facility] Address [address], [place] [address] Care Team Providers Care Director Foundation Name Role Phone Isabela Thorpe MD Primary Care Provider [phone] Reason for Visit * Reason Comments EATING DISORDER Encounter Details Date Type Department Care Team (Late st Contact Info) Description 04/18/2025 4:00 PM POOL INSTALLER Telemedicine [facility] [address] [place] [address], [address] [place] [address] Katherine Cardona, RDN, LD [address] [facility] [address] [place] [address] Other specified eating disorder (Primary Dx) Social [...] any time in the past 12 m [facility], were you homeless or living in a fci (including now)? No 02/16/2025 [facility] Utilities Answer Date Recorded In [...] Notes * Katherine Cardona, ZAK, LD - 04/18/2025 4:00 PM CST [facility] Nutrition Follow-Up Note Date of Service: 04/18/2025 Start Time: 4:02 pm End Time: 4:24 pm Type of Service: 28039 Nutritional re-assessment Patient Location/Level of Care: Outpatient (OP) - [place] [facility] discussed with the patient/parent that this visit [...] Location of clinician: clinic Location of patient: home Assessment Data Date of Initial Assessment: No data recorded Initial Assessment Completed By: No data recorded Location of Initial Assessment: No data recorded Treatment Modality: TBD by Therapist Anticipated Treatment Length (time range or session range): TBD Phase of Treatment: outpatient - f/u Session #: 2 Diagnosis: 1. Other specified eating disorder Barriers to Recovery: Barriers to Recovery: Pre-contemplation/Contemplation stage of change Current Height and Weight: 04/10/2025 11:28 AM Height & Weight Weight in lbs 203 lb 9.6 oz Weight in kg 92.352 kg Height in cm 160 cm Height in ft / in 5' 2.874 BMI Readings from Last 1 Encounters: 04/10/25 36.21 kg/m?? Weight readings from last three encounters: Wt Readings from Last 3 Encounters: 04/10/25 92.4 kg (203 lb 9.6 oz) 03/20/25 93.3 kg (205 lb 9.6 oz) 02/24/25 95.6 kg (210 lb 12.2 oz) TREND: Down 2 lb over 3 weeks. Down 7 lb in 6 weeks. High weight: 232# (age 29#) Low weight: 150# (late teens to early 20s) Goal Weight Range: Goal Weight: Natural weight with normal eating and activity Goal Weight: Natural weight with normal eating and activity. Would anticipate some weight religion with recent restrictive eating patterns. Menstrual Periods: Patient's last menstrual period was 03/18/2025. Comments: IUD - plans to have it removed, sterilized in November. Some form of control since age 20. Was very heavy and irregular prior to starting control. Social History: The patient currently lives with roommate in apartment in [place], [place]. Moving back in with mom due to really struggling after leaving IR, will be moving on 04/07. The patient is currently employed: Yes, [employer], technically part-time but mostly works full-time hours. Hobbies and interests include nothing right now - really stressed out and tired/low energy. Plansto restart yoga and join a book club. Mom has a dog she wants to walk with. Started dating someone. Eating Pattern Wake up at 2:30 am for work Breakfast (~10 am): mini muffin pack OR couple granola bars OR kwik trip smoothie AM Snack: skip Lunch: skip PM Snack: skip Dinner (sometime between 3:30-7:30 pm): spaghettios, fruit, magdalena crackers and strawberry cream cheese Evening Snack: skip Fluid Intake: water (32-40 oz/day), juice, liquid IV NKFA Food Intolerances: Lactose - will occasionally eat ice cream otherwise will use oatmilk for milk, OK for yogurt/kefir, cheese is usually OK Dislikes: tomatoes (sauce ok), mushrooms, couscous Safe foods - fruit with fruit dip or nutella or PB, magdalena crackers and strawberry cream cheese Gastrointestinal issues: Colonoscopy and upper endoscopy - negative for Celiac when tested Diarrhea - BM at least 2x/day since restricting. Shared regular BM 1x/day when eating consistently in IR. Symptoms Patient's Historical Symptoms: Restricting, hx/o binging Food rules: Yes, Contamination OCD - don't eat big cuts of meat (only eat processed or cured meats), don't eat for a couple hours before bed, eat foods 1 at a time from least favorite to most favorite, doesn't want to contribute to food waste and feels guilty if doesn't finish the plate, fill up beverage before food Current Symptoms comments: restricting, eating ~2 small meals each day Meal Plan: Calories: 1200 (02/17), 1500 (02/18), 1900 (02/19), min 2200 (02/20) 3m/3s Protein: vegetarian (limited cheese) when RD selecting Milk: van or chocolate soy Caffeine (Free Text): ok x2 if requesting Nutrition Plan of Care Nutrition Intervention: Met with ministerio for nutrition follow up appointment #1. Worked on building rapport. Reviewed current eating patterns and sx use. Pt notes she has had a couple of unintentional vomiting episodes since last appointment. Agrees it is likely related to excess hunger. We discussedutilizing some foods with quick CHO for energy to see if this helps with symptoms (ie, couple go-gosqueezes, regular soda, juice, fruit snacks, gummy candy, etc). Discussed eating a portion of thesefoods and waiting 10-15 minutes and if still feeling nauseated/light-headed/shaky, etc then to eat another portion. Encouraged doing this before meal intake to help with increase appetite. Shares shecompleted her move into mom's house and this has gone well. Reviewed portioning based on plate by plate approach to assist in portioning adequate volume at meals. Sent scheduling link for follow up and reminded her to schedule with the rest of the team as well. Offered support, encouragement and simon idation. Goals: 1) Working towards 3 meals and 2-3 snacks/day 2) Begin portioning adequate volume at dinner 3) Eat quick/simple CHO when experiencing nausea and/or before meals to see if this helps assist inincreasing appetite Treatment Plan/Follow-up: Out-Patient Program Weekly to bi-monthly sessions with RD until otherwise indicated Katherine Cardona RDN, DEVEN INSTALLER documented in this encounter Plan of Treatment Upcoming Encounters Date Type Department Care Team (Late st Contact Info) Description 05/19/2025 12:00 PM POOL INSTALLER Telemedicine [facility] [address], [address] [place] [address] Perri Aguilar MA, [facility] [address] [place] [address] documented as of this encounter Visit Diagnoses Diagnosis Other specified eating disorder- Primary documented in this encounter Care Teams Director Foundation Relationship Specialty Start Date End Date Isabela Thorpe MD [address] [place] [address] PCP - General Obstetrics Gynecology 02/15/25 documented as of this encounter
--- OUTSIDE RECORDS SUMMARY | 2025-04-19 09:00 | XMS_ITS | Encounter Summary ---
Author Organization [employer] Address [address], [place] [address] Care Team Providers Care Loader Demolder Name Role Phone Isabela Thorpe MD Primary Care Provider [phone] Reason for Visit * Reason Comments EATING DISORDER Encounter Details Date Type Department Care Team (Late st Contact Info) Description 04/19/2025 9:00 AM AUTOMATIC BEADING LATHE OPERATOR Office Visit [facility] [address] [place] [address], [address] [place] [address] Michelle Gilliland MD [address] [facility] [address] [place], [place] [address] Other specified eating disorder (Primary Dx); Nausea and vomiting, unspecified vomiting type Social History Tobacco Use Types Packs/Day Years [...] any time in the past 12 m [facility], were you homeless or living in a senior care (including now)? No 02/16/2025 [facility] Utilities Answer Date Recorded In the past 12 months has th e [employer], gas, oil, or water e-channel threatened to shut off services in your home? No 02/16/2025 Comments No Sex and Gender Information Value Date Recorded Sex Assigned at Not on file Legal Sex Female 4:38 PM CDT Gender Identity Not on file Sexual Orientation Not on file documented as of this encounter Last Filed Vital Signs Vital Sign Reading Time Taken Comments Blood Pressure 125/85 04/19/2025 8:52 AM AUTOMATIC BEADING LATHE OPERATOR Pulse 131 04/19/2025 8:52 AM AUTOMATIC BEADING LATHE OPERATOR Temperature 36.5 C (97.7 F) 04/19/2025 8:52 AM AUTOMATIC BEADING LATHE OPERATOR Respiratory Rate - - Oxygen Saturation - - Inhaled Oxygen Concentration - - Weight 88.9 kg (196 lb) 04/19/2025 8:50 AM AUTOMATIC BEADING LATHE OPERATOR Height 159.7 cm (5' 2.87) 04/19/2025 8:50 AM CS T Body Mass Index 34.86 04/19/2025 8:50 AM AUTOMATIC BEADING LATHE OPERATOR documented in this encounter Progress Notes * Carter Goldstein - 04/19/2025 9:00 AM CSTAddended by: CARTER GOLDSTEIN on: 04/19/2025 10:04 AM Modules accepted: Orders MATIC BEADING LATHE OPERATOR * Michelle Gilliland MD - 04/19/2025 9:00 AM CST Images from the original note were not included. [facility] Medical Progress Note Date: 04/19/2025 Name: Ministerio Paniagua : 1995 Age: 29 y.o. Chief Complaint: Outpatient follow up regarding their eating disorder. HPI: Eating disorder: Chart notes reviewed. [place] Feb 2025 with diagnosis of OSFED. Brief IR stay for symptom interruption to re-establish regular eating patterns in February. Ministerio is here today with symptoms of nausea and vomiting. Got IUD out on and started having heavier menses after this. Wonders if this could be contributing to symptoms. Has been taking metronidazole for BV. Was having uncontrolled vomiting for the past two days, but also had this occur two other days in the last week. She had previously experienced vomiting related to disruption of eating patterns. Knows that she isnot eating enough but just doesn't feel hungry. Doesn't know if she is using her ED as a coping mechanism for stress or if she is truly unable to eat. This feels a little different than previous episodes of nausea and vomiting, as this has occurred previously in times of extreme stress and she does not feel unduly stressed at this time. Has not been attempting to eat consistently in the last several days. Did find that when she was able to get some food in, it helped the nausea but then was worried about getting sick. Has tried ondansetron previously but did not find it particularly helpful. Will get sweaty and hot before vomiting. Notes no chance of . LMP:Patient's last menstrual period was 04/13/2025. Digestion issues: as above Activity: work SIB: none HARITHA: none Physical Exam: 04/19/2025 8:50 AM 04/19/2025 8:52 AM Vitals Temp 36.5 ??C (97.7 ??F) Pulse 109 131 Patient's Position during Vital Signs Supine Standing BP 134/77 125/85 04/19/2025 8:50 AM Height & Weight Weight in lbs 196 lb Weight in kg 88.905 kg Height in cm 160 cm Height in ft / in 5' 2.874 Wt Readings from Last 3 Encounters: 04/19/25 88.9 kg (196 lb) 04/10/25 92.4 kg (203 lb 9.6 oz) 03/20/25 93.3 kg (205 lb 9.6 oz) Estimated body mass index is 34.86 kg/m?? as calculated from the following: Height as of this encounter: 1.597 m (5' 2.87). Weight as of this encounter: 88.9 kg (196 lb). Normalized BMI data available only for age 0 to 20 years. 04/04/2025 4:33 PM [facility] GOAL WEIGHT Goal Weight Natural weight with normal eating and activity. Would anticipate some weight methodist with recent restrictive eating patterns. BMI Readings from Last 1 Encounters: 04/19/25 34.86 kg/m?? GENERAL: no acute distress, cooperative to examination. HEAD/ENT/MOUTH: NCAT MS/EXTREM: normal gait, extremities normal, atraumatic, no cyanosis or edema SKIN: dry, no lesions or rashes NEURO: alert, oriented to situation, moves all extremities, no involuntary movements PSYCH: full range of affect Diagnostics: EKG from 02/16/25 reviewed. Lab results: From previous visit reviewed. Labs/EKG ordered: yes. Problems addressed: 1. Other specified eating disorder 2. Nausea and vomiting, unspecified vomiting type Plan: Reviewed clinical status. Pt reports frequent nausea and vomiting. Unclear whether this is due to the eating disorder, as the frequency and severity of symptoms would be outside of the scope typically seen with restriction. Infectious vs medication side effect vs gastritis vs other. She does note reduction of nausea with eating. Recommend intake as tolerated Q2 hours, use hydroxyzine low dose PRN for nausea, and trial famotidine BID. If symptoms persisting despite this, recommend PCP follow up for further eval. Labs today to assess electrolyte stability. Discussion/decision regarding admission to our partial hospitalization program (PHP), intensive residential program (IR) or residential program (RES): no. Mood: Aware of role of restriction in worsened [...] coordinate care as needed. Follow up in 1-2 weeks, or sooner prn. MATIC BEADING LATHE OPERATOR documented in this encounter Plan of Treatment Upcoming Encounters Date Type Department Care Team (Late st Contact Info) Description 05/19/2025 12:00 PM AUTOMATIC BEADING LATHE OPERATOR Telemedicine [facility] [address] [place] [address] Perri Aguilar MA, [facility] [address] [place] [address] documented as of this encounter Procedures Procedure Name Priority Date/Time Associated Diagnosis Comments COMPREHENSIVE METABOLIC PANEL Routine 04/19/2025 10:04 AM AUTOMATIC BEADING LATHE OPERATOR Other specified eating disorder Nausea and vomiting, unspecified vomiting type PHOSPHORUS Routine 04/19/2025 10:04 AM AUTOMATIC BEADING LATHE OPERATOR Other specified eating disorder Nausea and vomiting, unspecified vomiting type documented in this encounter Results * Phosphorus (04/19/2025 10:04 AM AUTOMATIC BEADING LATHE OPERATOR) Pathologist [facility] Phosphorus 2.6 2.3 - 4.7 mg/dL 04/19/2025 5:53 PM AUTOMATIC BEADING LATHE OPERATOR [facility] Blood Venipuncture / Unknown 04/19/2025 10:04 AM AUTOMATIC BEADING LATHE OPERATOR 04/19/2025 5:19 PM AUTOMATIC BEADING LATHE OPERATOR us Michelle Gilliland MD LAB_1 Final Result [facility] CLIA: [id number] [address] * Comp Metabolic Panel (04/19/2025 10:04 AM [facility]) Sodium 137 136 - 145 mmol/L 04/19/2025 5:55 PM [facility] Potassium 4.2 3.5 - 5.1 mmol/L 04/19/2025 5:55 PM [facility] Chloride 106 98 - 109 mmol/L 04/19/2025 5:55 PM [facility] CO2 22 20 - 29 mmol/L 04/19/2025 5:55 PM [facility] Anion Gap 9 6 - 16 mmol/L 04/19/2025 5:55 PM [facility] Calcium 9.8 8.4 - 10.4 mg/dL 04/19/2025 5:55 PM [facility] BUN 11 7 - 26 mg/dL 04/19/2025 5:55 PM [facility] Creatinine 0.75 0.55 - 1.02 mg/dL 04/19/2025 5:55 PM [facility] Alkaline Phosphatase 101 40 - 150 U/L 04/19/2025 5:55 PM [facility] AST (SGOT) 28 16 - 46 U/L 04/19/2025 5:55 PM [facility] ALT (SGPT) 30 0 - 55 U/L 04/19/2025 5:55 PM [facility] Bilirubin, Total 0.4 0.2 - 1.2 mg/dL 04/19/2025 5:55 PM [facility] Protein, Total 7.1 6.4 - 8.3 g/dL 04/19/2025 5:55 PM [facility] Albumin 4.3 3.5 - 5.0 g/dL 04/19/2025 5:55 PM [facility] Glucose 93 70 - 100 mg/dL 04/19/2025 5:55 PM [facility] Comment:The given reference range is for the fasting state. Non-fasting reference range for glucose is 70 - 180 mg/dL. GFR, Estimated >60 >60 mL/min/1.7 3m2 04/19/2025 5:55 PM AUTOMATIC BEADING LATHE OPERATOR [facility] Hours Fasting 0.0 8 - 12 Hours 04/19/2025 5:55 PM AUTOMATIC BEADING LATHE OPERATOR [facility] Comment:Patient has indicate d a non-fasting status. Blood Venipuncture / Unknown 04/19/2025 10:04 AM AUTOMATIC BEADING LATHE OPERATOR 04/19/2025 5:19 PM AUTOMATIC BEADING LATHE OPERATOR us Michelle Gilliland MD LAB_1 Final Result [facility] CLIA: [id number] [address] [place] documented in this encounter Visit Diagnoses Diagnosis Other specified eating disorder- Primary Nausea and vomiting, unspecified vomiting type documented in this encounter Care Teams Loader Demolder Relationship Specialty Start Date End Date Isabela Thorpe MD [address] [place] [address] PCP - General Obstetrics Gynecology 02/15/25 documented as of this encounter
--- OUTSIDE RECORDS SUMMARY | 2025-04-28 12:00 | XMS_ITS | Encounter Summary ---
Author Organization [id number] Address [address], [place] [address] Care Team Providers Care Occupational Therapy Professor Name Role Phone Isabela Thorpe MD Primary Care Provider [phone] Reason for Visit * Reason Comments EATING DISORDER Encounter Details Date Type Department Care Team (Late st Contact Info) Description 04/28/2025 12:00 PM PATIENT AMBASSADOR Telemedicine [facility] [address] [place], [place] [address] Perri Aguilar MA, [facility] [address] [place] [address] Other specified eating disorder (Primary Dx); Bipolar [...] any time in the past 12 m [facility], were you homeless or living in a retirement (including now)? No 02/16/2025 [facility] Utilities Answer Date Recorded In the past 12 months has th e [employer], gas, oil, or water [employer] threatened to shut off services in your home? No 02/16/2025 Comments No Sex and Gender Information Value Date Recorded Sex Assigned at Not on file Legal Sex Female 4:38 PM CDT Gender Identity Not on file Sexual Orientation Not on file documented as of this encounter Progress Notes * Perri Aguilar MA, [facility] - 04/28/2025 12:00 PM CST [facility] Psychotherapy Progress Note DIAGNOSIS: 1. Other specified eating disorder 2. Bipolar 2 disorder (HRC) 3. Mixed obsessional thoughts and acts Level of Care: Outpatient (OP) - [facility] Initial Assessment Date: 02/16/25 Initial Assessment Completed By: Michelle Gilliland MD Video Visit: This appointment was conducted via telehealth (video) as it is the patient's preference and it is appropriate for the treatment being provided. Patient location: home, Clinician location: clinic. Start Time: 12:05pm End Time: 12:47pm Eating Disorder Symptom Review Treatment History: Patient was in [facility] for 10 [facility] Symptom History (if different from current symptom presentation): restriction Current Symptoms (ex: frequency, symptom changes, etc): inconsistent eating, dichotomous thoughts about food, poor body image Current Height and Weight: 03/20/2025 1:56 PM 04/10/2025 11:28 AM 04/19/2025 8:50 AM Height & Weight Weight in lbs 205 lb 9.6 oz 203 lb 9.6 oz 196 lb Weight in kg 93.26 kg 92.352 kg 88.905 kg Height in cm 160 cm 160 cm 160 cm Height in ft / in 5' 2.874 5' 2.874 5' 2.874 Goal weight: 04/04/2025 4:33 PM [place] GOAL WEIGHT Goal Weight Natural weight with normal eating and activity. Would anticipate some weight sikhism with recent restrictive eating patterns. Intervention Method Treatment Modality: CBT and DBT and supportive therapy Phase of Treatment (if applicable): n/a Session #: 7 Present in session: patient was seen alone Patient shared that she weighted 196# in her street clothes on her home scale. Behavior Analyst and patient documented her weight on her chart and discussed patient's downward weight trend. Patient shared thatshe was starting to take some steps in eating more regularly and then fell off again. Patient was distressed about her struggles. Behavior Analyst helped patient ground in the moment and then helped patient with some skills she can use to try to make eating happen even if it isn't as easy and she would like it to be. Behavior Analyst and patient also discussed strategies for navigating Thanksgiving and patient verbalized that this was helpful. Mental Status Exam Mood: within normal limits Affect: mood-congruent Appearance: within normal limits and age appropriate Outcome Measures 02/24/2025 8:26 AM 02/23/2025 2:22 PM 02/22/2025 8:39 PM Outcome Measures PHQ-9 Score 9 LEÓN-7 Score 6 Houston Score Moderate Moderate BMI BMI Readings from Last 1 Encounters: 04/19/25 34.86 kg/m?? Treatment Goals Increase regular eating: Continue Symptom interruption: Continue Increase readiness for treatment: Continue Increase effective use of coping strategies: Continue Improve body image: Continue Psychotherapy Follow-up Plan: Individual therapy, frequency of sessions weekly Treatment Team Follow-up: Dietetic follow-up and MD follow-up Anticipated Treatment Length (time range or session range): 6-12 months Anticipated Discharge Plan and Date (if known): TBD ENT AMBASSADOR documented in this encounter Plan of Treatment Upcoming Encounters Date Type Department Care Team (Late st Contact Info) Description 05/19/2025 12:00 PM PATIENT AMBASSADOR Telemedicine [facility] [address] [place] [address] Perri Aguilar MA, [place] [id number] [place] [address] documented as of this encounter Visit Diagnoses Diagnosis Other specified eating disorder- Primary Bipolar 2 disorder (HRC) Other bipolar disorders Mixed obsessional thoughts and acts documented in this encounter Care Teams Occupational Therapy Professor Relationship Specialty Start Date End Date Isabela Thorpe MD [address] [place] [address] PCP - General Obstetrics Gynecology 02/15/25 documented as of this encounter
--- OUTSIDE RECORDS SUMMARY | 2025-05-05 12:00 | XMS_ITS | Encounter Summary ---
Author Organization [employer] Address [address], [place] [address] Care Team Providers Care Trail Maintenance Worker Name Role Phone Isabela Thorpe MD Primary Care Provider [phone] Reason for Visit * Reason Comments EATING DISORDER Encounter Details Date Type Department Care Team (Late st Contact Info) Description 05/05/2025 12:00 PM CAREER TRANSITION SPECIALIST Telemedicine [facility] [address] [place], [place] [address] Perri Aguilar MA, [facility] [address] [place] [address] Other specified eating disorder (Primary Dx); Bipolar [...] any time in the past 12 m [facility], were you homeless or living in a usp (including now)? No 02/16/2025 [facility] Utilities Answer Date Recorded In the past 12 months has th e [place], gas, oil, or water [employer] threatened to shut off services in your home? No 02/16/2025 Comments No Sex and Gender Information Value Date Recorded Sex Assigned at Not on file Legal Sex Female 4:38 PM CDT Gender Identity Not on file Sexual Orientation Not on file documented as of this encounter Progress Notes * Perri Aguilar MA, [facility] - 05/05/2025 12:00 PM CST [facility] Psychotherapy Progress Note DIAGNOSIS: 1. Other specified eating disorder 2. Bipolar 2 disorder (HRC) 3. Mixed obsessional thoughts and acts Level of Care: Outpatient (OP) - [facility] Initial Assessment Date: 02/16/25 Initial Assessment Completed By: Michelle Gilliland MD Video Visit: This appointment was conducted via telehealth (video) as it is the patient's preference and it is appropriate for the treatment being provided. Patient location: home, Clinician location: clinic. Start Time: 12:01pm End Time: 12:49pm Eating Disorder Symptom Review Treatment History: Patient was in [facility] for 10 days Symptom [...] 5' 2.874 Goal weight: 04/04/2025 4:33 PM [place] GOAL WEIGHT Goal Weight Natural weight with normal eating and activity. Would anticipate some weight episcopalian with recent restrictive eating patterns. Intervention Method Treatment Modality: CBT and DBT and supportive therapy Phase of Treatment (if applicable): n/a Session #: 8 Present in session: patient was seen alone Patient shared that Jules went very poorly for patient. She shared that she had a really hard day at work before going to her family [place] and then when she got there, she couldn't stopcrying. Torque Tester held space for patient to process her distress. Patient shared that she is hating herself because she can't just eat. Torque Tester worked with patient on thought challenging and then on acceptance, right now, as a way to decrease her self-expectation of perfection. Torque Tester asked patient to focus on self-care this week and patient agreed to try. Mental Status Exam Mood: within normal limits Affect: mood-congruent Appearance: within normal limits and age appropriate Outcome Measures 05/05/2025 2:45 PM 02/24/2025 8:26 AM 02/23/2025 2:22 PM Outcome Measures Halls Score Moderate Moderate Moderate BMI BMI Readings from Last [...] Discharge Plan and Date (if known): TBD ER TRANSITION SPECIALIST documented in this encounter Plan of Treatment Upcoming Encounters Date Type Department Care Team (Late st Contact Info) Description 05/19/2025 12:00 PM CAREER TRANSITION SPECIALIST Telemedicine [facility] [address] [place] [address] Perri Aguilar MA, [facility] [address] [place] [address] documented as of this encounter Visit Diagnoses Diagnosis Other specified eating disorder- Primary Bipolar 2 disorder (HRC) Other bipolar disorders Mixed obsessional thoughts and acts documented in this encounter Care Teams Trail Maintenance Worker Relationship Specialty Start Date End Date Isabela Thorpe MD [address] [place] [address] PCP - General Obstetrics Gynecology 02/15/25 documented as of this encounter
--- OUTSIDE RECORDS SUMMARY | 2025-05-13 04:05 | XMS_ITS | Encounter Summary ---
Author Organization [employer] Address [address], [place] [address] Care Team Providers Care Freight Separator Name Role Phone Isabela Thorpe MD Primary Care Provider [phone] Encounter Details Date Type Department Care Team (Late st Contact Info) Description 04/13/2025 Results Follow-Up [facility] [address] [place] [address], [address] [place], [place] [id number] Michelle Gilliland MD [address] [facility] [address] [place] [address] Social History Tobacco Use Types Packs/Day Years [...] time in the past 12 m [facility], were you homeless or living in a intermediate (including now)? No 02/16/2025 [facility] Utilities Answer Date Recorded In the [...] on file documented as of this encounter Plan of Treatment Upcoming Encounters Date Type Department Care Team (Late st Contact Info) Description 05/19/2025 12:00 PM DIGITAL FORENSIC ANALYST Telemedicine [facility] [address] [place] [address] Perri Aguilar MA, [facility] [address] [place] [address] documented as of this encounter Visit Diagnoses Not on filedocumented in this encounter Care Teams Freight Separator Relationship Specialty Start Date End Date Isabela Thorpe MD [address] [place] [address] PCP - General Obstetrics Gynecology 02/15/25 documented as of this encounter
--- OUTSIDE RECORDS SUMMARY | 2025-05-13 04:06 | XMS_ITS | Clinical Summary ---
Author Organization [facility] Address [address] [place] [address] Care Team Providers Care Photography Instructor Name Role Phone Isabela Thorpe MD Primary Care Provider [phone] Source Comments You are receiving this document as you are listed as the primary care provider,follow-up provider, or the patient has been referred to you for consultation.This is in compliance with the Medicare and[facility] Cent[facility] EHR Incentive Program,which states Providers who transition their patient to another setting of careor provider of care or refers their patient to another provider of care shouldprovide summary care record for each transition of care or referral. [employer] Allergies No known active allergies Medications fluvoxaMINE (LUVOX) 100 MG tablet Take 1 Tablet (100 mg) by mouth daily. Take 150 mg/daily. 5 Active lamoTRIgine (LAMICTAL) 25 MG tablet Take 1 Tablet (25 mg) by mouth daily for 6 doses. Active cholecalciferol 25 MCG TABS Take 2 Tablets (2,000 Units) by mouth daily. 5 Active Additional Information Patient not taking.Reported on 04/19/2025 docusate sodium 100 MG Take 1 Capsule (100 mg) by mouth two times a day. Active hydrOXYzine pamoate (VISTARIL) 25 MG capsule Take 1-2 Capsules (25-50 mg) by mouth daily at bedtime. Active multivitamin (THERAGRAN) tablet Take 1 Tablet by mouth daily. Active Additional Information Patient not taking.Reported on 04/19/2025 simethicone (MYLICON) 125 MG chewable tablet Chew and swallow 1 Tablet (125 mg) by mouth 4 times daily as needed. Active Additional Information Patient not taking.Reported on 04/19/2025 lamoTRIgine (LAMICTAL) 150 MG tablet Take 1 Tablet (150 mg) by mouth daily. Active metroNIDAZOLE (FLAGYL) 500 MG tablet Take 1 Tablet (500 mg) by mouth two times a day. Active traZODone (DESYREL) 50 MG tablet Take 1 Tablet (50 mg) by mouth at bedtime as needed. Active Active Problems Problem Noted Date Diagnosed Date Other specified eating disorder 02/16/2025 Bipolar 2 disorder 02/16/2025 Mixed obsessional thoughts and acts 02/16/2025 Resolved Problems Problem Noted Date Diagnosed Date Resolved Date Tachycardia 02/16/2025 02/24/2025 Hypoglycemia 02/16/2025 02/24/2025 Encounters Date Type Department Care Team Description 05/05/2025 12:00 PM PERSONAL DEVELOPMENT MENTOR Telemedicine [facility] [address] [place] [address] Perri Aguilar [facility], [facility] Other specified eating disorder (Primary Dx); Bipolar 2 disorder (HRC); Mixed obsessional thoughts and acts 04/28/2025 12:00 PM PERSONAL DEVELOPMENT MENTOR Telemedicine [facility] [address], [address] [place] [address] Perri Aguilar MA, [facility] Other specified eating disorder (Primary Dx); Bipolar 2 disorder (HRC); Mixed obsessional thoughts and acts 04/25/2025 Results Follow-Up [facility] [address] [place] [address] Michelle Gilliland MD 04/19/2025 9:00 AM PERSONAL DEVELOPMENT MENTOR Office Visit [facility] [address] [place] [address] Michelle Gilliland MD Other specified eating disorder (Primary Dx); Nausea and vomiting, unspecified vomiting type 04/18/2025 4:00 PM PERSONAL DEVELOPMENT [employer]ENTOR Telemedicine [facility] [address] [place] [address] [address] [place] [address] Katherine Cardona RDN, DEVEN Other specified eating disorder (Primary Dx) 04/13/2025 4:00 PM PERSONAL DEVELOPMENT [employer]OR Telemedicine [facility] [address] [place] [address] [address] [place] [address] Perri Aguilar MA, [facility] Other specified eating disorder (Primary Dx); Bipolar 2 disorder (HRC); Mixed obsessional thoughts and acts 04/13/2025 Results Follow-Up [facility] [address] [place] [id number] Michelle Gilliland MD 04/10/2025 11:20 AM PERSONAL DEVELOPMENT MENTOR Office Visit [facility] [address], [address] [place] [address] Michelle Gilliland MD Other specified eating disorder (Primary Dx); Mixed obsessional thoughts and acts; Bipolar 2 disorder (HRC) 04/06/2025 3:00 PM CDT Telemedicine [facility] [address] [place] [address] Perri Aguilar MA, [facility] Other specified eating disorder (Primary Dx); Mixed obsessional thoughts and acts; Bipolar 2 disorder (HRC) 04/04/2025 3:30 PM CDT Telemedicine [facility] [address] [place] [address] Katherine Cardona, ZAK, LD Other specified eating disorder (Primary Dx) 03/30/2025 3:00 PM CDT Telemedicine [facility] [address] [place] [address]. [address] [place] [address] Perri Aguilar MA, [facility] Other specified eating disorder (Primary Dx); Mixed obsessional thoughts and acts; Bipolar 2 disorder (HRC) 03/23/2025 3:00 PM CDT Telemedicine [facility] [address] [place] [address]. [address] [place] [address] Perri Aguilar MA, [facility] Other specified eating disorder (Primary Dx); Mixed obsessional thoughts and acts; Bipolar 2 disorder (HRC) 03/20/2025 2:00 PM CDT Office Visit [facility] [address] [place] [address]. [address] [place] [address] Michelle Gilliland MD Other specified eating disorder (Primary Dx); Mixed obsessional thoughts and acts; Bipolar 2 disorder (HRC) 03/16/2025 3:00 PM CDT Telemedicine [facility] [address] [place] [address]. [address] [place] [address] Perri Aguilar MA, [facility] Other specified eating disorder (Primary Dx); Mixed obsessional thoughts and acts; Bipolar 2 disorder (HRC) 03/09/2025 3:00 PM CDT Telemedicine [facility] [address] [place], [place] [address]vd[address] [place] [address] Perri Aguilar MA, [facility] Other specified eating disorder (Primary Dx); Mixed obsessional thoughts and acts; Bipolar 2 disorder (HRC) 02/28/2025 Care Coord [facility] [address] [place], [place] [address]vd[address] [place] [address] Sarahi Acosta MA 02/24/2025 Notes/Orders [facility] [address] [place] [address] Keisha Brito, DO 02/23/2025 Care Coord Documentation [facility] [address] [place] [address] Sarahi Acosta MA 02/23/2025 Notes/Orders [facility] [address] [address] Claudia Mcnally PsyD, LILIAN 02/23/2025 Orders Only [facility] [address] [place] [address] Michelle Gilliland MD Other specified eating disorder 02/22/2025 Notes/Orders [facility] [address] [address] Keisha Brito, DO 02/19/2025 Orders Only [facility] [address] [place] [address] Michelle Gilliland MD Other specified eating disorder 02/16/2025 11:28 AM CDT - 02/24/2025 11:00 AM CDT Hospital Encounter [address] [address] Michelle Gilliland MD Other specified eating disorder (Primary Dx) Discharge Disposition: Home 02/16/2025 9:20 AM CDT Office Visit [facility] [address], [address] [place] [address] Michelle Gilliland MD Nurse, [facility] Other specified eating disorder (Primary Dx); Bipolar 2 disorder (HRC); Mixed obsessional thoughts and acts; Tachycardia; Hypoglycemia (HRC) 02/16/2025 Notes/Orders [facility] [address] [place] [address] Keisha Brito, DO 02/16/2025 Care Coord Documentation [facility] [address], [address] [place] [address] Sarahi Acosta MA 02/16/2025 Care Coord Documentation [facility] [address] [facility] [place] [address] Sarahi Acosta MA 02/15/2025 8:21 PM CDT - 02/16/2025 12:02 AM CDT Emergency [facility] [address] [facility] [place] [address] Raymond Levin MD Alteration in appetite; Self-imposed food restriction Discharge Disposition: Home from Last 3 Months Immunizations Immunization Administration Dates Next Due Influenza ccIIV3 6 months+ (Flucelvax) () Tdap 01/31/2010 Social History Tobacco Use Types Packs/Day Years [...] any time in the past [address] [facility], were you homeless or living in a chcf (including now)? No 02/16/2025 [facility] Utilities Answer Date Recorded In the past 12 months has th e electric, gas, oil, or water company threatened to shut off services in your home? No 02/16/2025 Comments No Sex and Gender Information Value Date Recorded Sex Assigned at Not on file Legal Sex Female 4:38 PM CDT Gender Identity Not on file Sexual Orientation Not on file Last Filed Vital Signs Vital Sign Reading Time Taken Comments Blood Pressure 125/85 04/19/2025 8:52 AM PERSONAL DEVELOPMENT MENTOR Pulse 131 04/19/2025 8:52 AM PERSONAL DEVELOPMENT MENTOR Temperature 36.5 C (97.7 F) 04/19/2025 8:52 AM PERSONAL DEVELOPMENT MENTOR Respiratory Rate 20 02/15/2025 11:56 PM CDT Oxygen Saturation 98% 02/15/2025 11:56 PM CDT Inhaled Oxygen Concentration - - Weight 88.9 kg (196 lb) 04/19/2025 8:50 AM PERSONAL DEVELOPMENT MENTOR Height 159.7 cm (5' 2.87) 04/19/2025 8:50 AM CS T Body Mass Index 34.86 04/19/2025 8:50 AM PERSONAL DEVELOPMENT MENTOR Plan of Treatment Upcoming Encounters Date Type Department Care Team (Late st Contact Info) Description 05/19/2025 12:00 PM PERSONAL DEVELOPMENT MENTOR Telemedicine [facility] [address], [address] [place] [address] Perri Aguilar MA, [facility] [address] [place] [address] Health Maintenance Due Date Last Done Comments Cervical Cancer Screening Due 1997 Hep C Screening (Preventive Services) 1997 HIV Screening (Preventive Services) 2013 Adult Preventive Visit 2015 HepB Vaccine (1) 2016 DTaP/Tdap/Td Vaccine (2 - Tdap) 02/01/2020 01/31/2010 COVID-19 Vaccine (4 - 2024-2 6 season) 2025 05/13/2021, 10/11/2020, 09/20/2020 Influenza Vaccine (#1) 2025 3, 02/27/2021, 03/03/2019 Zoster/Shingles Vaccine (1 o f 2) 2047 HPV Vaccine Completed 02/27/2021, 06/02/2019, 01/27/2014 HepA Vaccine Aged Out No longer eligi ble based on patient's age to complete this topic Hib Vaccine Aged Out No longer eligi ble based on patient's age to complete this topic IPV (Polio) Vaccine Aged Out No longe r eligible based on patient's age to complete this topic MCV4 Vaccine Aged Out No longer eligi ble based on patient's age to complete this topic Meningococcal B Vaccine Aged Out No l onger eligible based on patient's age to complete this topic Pneumococcal Vaccine Aged Out No long er eligible based on patient's age to complete this topic Procedures Procedure Name Priority Date/Time Associated Diagnosis Comments PHOSPHORUS Routine 04/19/2025 10:04 AM PERSONAL DEVELOPMENT MENTOR Other specified eating disorder Nausea and vomiting, unspecified vomiting type COMPREHENSIVE METABOLIC PANEL Routine 04/19/2025 10:04 AM PERSONAL DEVELOPMENT MENTOR Other specified eating disorder Nausea and vomiting, unspecified vomiting type PHOSPHORUS Routine 04/10/2025 11:56 AM PERSONAL DEVELOPMENT MENTOR Other specified eating disorder COMPREHENSIVE METABOLIC PANEL Routine 04/10/2025 11:56 AM PERSONAL DEVELOPMENT MENTOR Other specified eating disorder COMPREHENSIVE METABOLIC PANEL Routine 02/23/2025 7:00 AM CDT Other specified eating disorder MAGNESIUM Routine 02/23/2025 7:00 AM CDT Other specified eating disorder PHOSPHORUS Routine 02/23/2025 7:00 AM CDT Other specified eating disorder GLUCOSE, WHOLE BLOOD POCT Routine 02/20/2025 8:52 AM CDT GLUCOSE, WHOLE BLOOD POCT Routine 02/19/2025 9:50 AM CDT COMPREHENSIVE METABOLIC PANEL Routine 02/19/2025 7:05 AM CDT Other specified eating disorder MAGNESIUM Routine 02/19/2025 7:05 AM CDT Other specified eating disorder PHOSPHORUS Routine 02/19/2025 7:05 AM CDT Other specified eating disorder VITAMIN D 25-HYDROXY, TOTAL Routine 02/19/2025 7:05 AM CDT Other specified eating disorder GLUCOSE, WHOLE BLOOD POCT Routine 02/18/2025 9:01 AM CDT GLUCOSE, WHOLE BLOOD POCT Routine 02/17/2025 9:46 AM CDT POCT URINE Routine 02/16/2025 12:47 PM CDT GLUCOSE, WHOLE BLOOD POCT Routine 02/16/2025 10:34 AM CDT ECG 12 LEAD OUTPATIENT Routine 02/16/2025 10:26 AM CDT Other specified eating disorder TSH, SENSITIVE STAT Add-On 02/15/2025 3:41 PM CDT PHOSPHORUS STAT Add-On 02/15/2025 3:41 PM CDT MAGNESIUM STAT Add-On 02/15/2025 3:41 PM CDT LIVER PANEL(HEPATIC FUNCTION PANEL) STAT Add-On 02/15/2025 3:41 PM CDT COMPLETE BLOOD COUNT-W/DIFF STAT 02/15/2025 3:41 PM CDT BASIC METABOLIC PANEL STAT 02/15/2025 3:41 PM CDT CBC AND DIFFERENTIAL PANEL STAT 02/15/2025 3:41 PM CDT from Last 3 Months Results * Comp Metabolic Panel (04/19/2025 10:04 AM PERSONAL DEVELOPMENT MENTOR) Only the most recent of4 resultswithin the time period is included. [facility] Sodium 137 136 - 145 mmol/L 04/19/2025 5:55 PM [facility] Potassium 4.2 3.5 - 5.1 mmol/L 04/19/2025 5:55 PM [facility] Chloride 106 98 - 109 mmol/L 04/19/2025 5:55 PM [facility] CO2 22 20 - 29 mmol/L 04/19/2025 5:55 PM [facility] Anion Gap 9 6 - 16 mmol/L 04/19/2025 5:55 PM [facility] Calcium 9.8 8.4 - 10.4 mg/dL 04/19/2025 5:55 PM [facility] BUN 11 7 - 26 mg/dL 04/19/2025 5:55 PM [facility] Creatinine 0.75 0.55 - 1.02 mg/dL 04/19/2025 5:55 PM [facility] Alkaline Phosphatase 101 40 - 150 U/L 04/19/2025 5:55 PM [facility] AST (SGOT) 28 16 - 46 U/L 04/19/2025 5:55 PM [facility] ALT (SGPT) 30 0 - 55 U/L 04/19/2025 5:55 PM [facility] Bilirubin, Total 0.4 0.2 - 1.2 mg/dL 04/19/2025 5:55 PM [facility] Protein, Total 7.1 6.4 - 8.3 g/dL 04/19/2025 5:55 PM [facility] Albumin 4.3 3.5 - 5.0 g/dL 04/19/2025 5:55 PM [facility] Glucose 93 70 - 100 mg/dL 04/19/2025 5:55 PM [facility] Comment:The given reference range is for the fasting state. Non-fasting reference range for glucose is 70 - 180 mg/dL. GFR, Estimated >60 >60 mL/min/1.7 3m2 04/19/2025 5:55 PM PERSONAL DEVELOPMENT MENTOR [facility] Hours Fasting 0.0 8 - 12 Hours 04/19/2025 5:55 PM [facility] Comment:Patient has indicate d a non-fasting status. Blood Venipuncture / Unknown 04/19/2025 10:04 AM PERSONAL DEVELOPMENT MENTOR 04/19/2025 5:19 PM PERSONAL DEVELOPMENT MENTOR us Michelle Gilliland MD LAB_1 Final Result Performing Organization Address City/[facility] Co de Phone Number [facility] CLIA: [id number] [address] [place] [address] * Phosphorus (04/19/2025 10:04 AM PERSONAL DEVELOPMENT MENTOR) Only the most recent of5 resultswithin the time period is included. Phosphorus 2.6 2.3 - 4.7 mg/dL 04/19/2025 5:53 PM PERSONAL DEVELOPMENT MENTOR [facility] Blood Venipuncture / Unknown 04/19/2025 10:04 AM PERSONAL DEVELOPMENT MENTOR 04/19/2025 5:19 PM PERSONAL DEVELOPMENT MENTOR Michelle Gilliland MD LAB_1 Final Result Performing Organization Address City/[facility] Co de Phone Number [facility] CLIA: [id number] [address] [place] [address] * Magnesium Day 7 (02/23/2025 7:00 AM CDT) Only the most recent of3 resultswithin the time period is included. Magnesium 2.2 1.6 - 2.6 mg/dL 02/23/2025 8:[address] [facility] Blood Venipuncture / Unknown 02/23/2025 7:00 AM CDT 02/23/2025 7:40 AM CDT Michelle Gilliland MD LAB_1 Final Result Performing Organization Address City/[facility]/ZIP Co de Phone Number [facility] CLIA: [id number] [facility] [address] * Glucose, Whole Blood POCT (02/20/2025 8:52 AM CDT) Only the most recent of5 resultswithin the time period is included. Glucose, Whole Blood 130 70 - 180 mg/dL 02/20/2025 8:54 AM CDT [facility] Performing Location [facility] [employer] 02/20/2025 8:54 AM CDT [facility] Blood 02/20/2025 8:52 AM CDT 02/20/2025 8:54 AM CDT Michelle Gilliland MD LAB_1 Final Result Performing Organization Address City/[facility] Co de Phone Number [facility] CLIA: [id number] [facility] [address] * Vitamin D 25-Hydroxy, Total (02/19/2025 7:05 AM CDT) Pathologist [facility] Vitamin D, 25-OH, Total 32 30 - 80 ng/mL 02/19/2025 8:[address] [facility] Blood Venipuncture / Unknown 02/19/2025 7:05 AM CDT 02/19/2025 8:15 AM CDT Michelle Gilliland MD LAB_1 Final Result Performing Organization Address City/[facility]/ZIP Co de Phone Number [facility] CLIA: [id number] [facility] [address] * POCT urine (02/16/2025 12:47 PM CDT) Urine Test - POC Negative Negative [facility] Control Line Present, Clear Background - Internal control Yes [facility] Cartridge Lot # [id number] [facility] Urine 02/16/2025 12:4 7 PM CDT us Michelle Gilliland MD ET POINT OF CARE TEST ENTER/E DIT ORDERABLES Final Result Performing Organization Address City/[facility]/ZIP Co de Phone Number [facility] CLIA: [id number] [address] [place] [address] * ECG 12 Lead Outpatient (02/16/2025 10:26 AM CDT) Ventricular Rate 77 BPM [facility] Atrial Rate 77 BPM [facility] P-R Interval 118 ms [facility] QRS Duration 74 ms [facility] QT 372 ms [facility] QTC 420 ms [facility] P [place] 57 degrees [facility] R [place] 40 degrees M[facility] T [place] 32 degrees [facility] 02/16/2025 10:2 6 AM CDT Narrative [facility] - 02/16/2025 8:23 PM CDT Sinus rhythm Normal ECG No previous ECGs available Confirmed by Len Chopra ([id number]) on 02/16/2025 8:23:35 PM Procedure Note Len Chopra MD - 02/16/2025 Sinus rhythm Normal ECG No previous ECGs available Confirmed by Len Chopra ([id number]) on 02/16/2025 8:23:35 PM us Michelle Gilliland MD PN ECG ORDERABLES Final Resul t [facility] [address] [place] [address] * (ABNORMAL) Complete Blood Count-W/Diff (02/15/2025 3:41 PM CDT) WBC 10.0 3.5 - 10.5 x10(9)/L 02/15/2025 3:[address] [facility] RBC 5.21(H) 3.90 - 5.03 x10(12)/L 02/15/2025 3:56 PM [facility] Hemoglobin 15.1 12.0 - 15.5 g/dL 02/15/2025 3:56 PM [facility] HCT 44.0 34.9 - 44.5 % 02/15/2025 3:56 PM [facility] MCV 84.5 80.0 - 100.0 fL 02/15/2025 3:56 PM [facility] MCH 29.0 27.6 - 33.3 pg 02/15/2025 3:56 PM [facility] MCHC 34.3 31.5 - 35.2 g/dL 02/15/2025 3:56 PM [facility] RDW 12.9 11.9 - 15.5 % 02/15/2025 3:56 PM [facility] Platelets 367 150 - 450 x10(9)/L 02/15/2025 3:56 PM [facility] Automated NRBC 0 <=0 /100 WBC 02/15/2025 3:56 PM [facility] Neutrophil Absolute 6.8 1.7 - 7.0 10(9)/L 02/15/2025 3:56 PM [facility] Lymphocyte Absolute 2.2 1.0 - 4.8 10(9)/L 02/15/2025 3:56 PM [facility] Monocyte Absolute 0.6 0.2 - 0.9 10(9)/L 02/15/2025 3:56 PM [facility] Eosinophil Absolute 0.3 0.0 - 0.5 10(9)/L 02/15/2025 3:56 PM [facility] Basophil Absolute 0.1 0.0 - 0.3 10(9)/L 02/15/2025 3:56 PM [facility] Immature Granulocyte % 0.4 0.0 - 0.5 % 02/15/2025 3:56 PM [facility] Blood Venipuncture / Unknown 02/15/2025 3:41 PM CDT 02/15/2025 3:45 PM CDT us Roberto Mendieta MD LAB_1 Final Resul t Performing Organization Address [facility] de Phone Number [facility] CLIA: [id number] [address] * Liver Panel (Hepatic Function Panel) (02/15/2025 3:41 PM CDT) Alkaline Phosphatase 100 40 - 150 U/L 02/15/2025 5:[address] [facility] Bilirubin, Total 0.6 0.2 - 1.2 mg/dL 02/15/2025 5:[address] [facility] Bilirubin, Direct 0.3 0.0 - 0.5 mg/dL 02/15/2025 5:[address] [facility] AST (SGOT) 30 16 - 46 U/L 02/15/2025 5:17 PM [facility] ALT (SGPT) 29 0 - 55 U/L 02/15/2025 5:[address] [facility] Protein, Total 7.2 6.4 - 8.3 g/dL 02/15/2025 5:17 PM [facility] Albumin 4.4 3.5 - 5.0 g/dL 02/15/2025 5:[address] [facility] Blood Venipuncture / Unknown 02/15/2025 3:41 PM CDT 02/15/2025 3:45 PM CDT Raymond Levin MD LAB_1 Final Result Performing Organization Address [facility] de Phone Number [facility] CLIA: [id number] [address] * TSH (02/15/2025 3:41 PM CDT) Pathologist [facility] TSH, Sensitive 0.85 0.30 - 4.50 uIU/mL 02/15/2025 5:[address] [facility] Blood Venipuncture / Unknown 02/15/2025 3:41 PM CDT 02/15/2025 3:45 PM CDT us Raymond Levin MD LAB_1 Final Result Performing Organization Address [facility]/ZIP Co de Phone Number [facility] CLIA: [id number] [facility] [address] * (ABNORMAL) Basic Metabolic Panel (02/15/2025 3:41 PM CDT) Sodium 140 136 - 145 mmol/L 02/15/2025 4:11 PM [facility] Potassium 3.9 3.5 - 5.1 mmol/L 02/15/2025 4:11 PM [facility] Chloride 105 98 - 109 mmol/L 02/15/2025 4:11 PM [facility] CO2 20 20 - 29 mmol/L 02/15/2025 4:11 PM [facility] Anion Gap 15 6 - 16 mmol/L 02/15/2025 4:11 PM [facility] Calcium 9.8 8.4 - 10.4 mg/dL 02/15/2025 4:11 PM [facility] BUN 11 7 - 26 mg/dL 02/15/2025 4:11 PM [facility] Creatinine 0.80 0.55 - 1.02 mg/dL 02/15/2025 4:11 PM [facility] Glucose 65(L) 70 - 100 mg/dL 02/15/2025 4:11 PM [facility] Comment:The given reference range is for the fasting state. Non-fasting reference range for glucose is 70 - 180 mg/dL. GFR, Estimated >60 >60 mL/min/1.7 3m2 02/15/2025 4:11 PM [facility] Blood Venipuncture / Unknown 02/15/2025 3:41 PM CDT 02/15/2025 3:45 PM CDT us Roberto Mendieta MD LAB_1 Final Resul t Performing Organization Address City/[facility]/ZIP Co de Phone Number [facility] CLIA: [id number] [address] [place] [address], [place] from Last 3 Months Insurance [facility] [employer] Advance Directives * Full Code (Latest Code Status on File) Date Activated Date Inactivated Comments 02/16/2025 11:31 AM 02/24/2025 1:32 PM Care Teams Photography Instructor Relationship Specialty Start Date End Date Isabela Thorpe MD [address] [place] [address] PCP - General Obstetrics Gynecology 02/15/25
--- OUTSIDE RECORDS SUMMARY | 2025-05-13 04:06 | XMS_ITS | Encounter Summary ---
Author Organization [employer] Address [address], [place] [address] Care Team Providers Care Steel Layer Name Role Phone Isabela Thorpe MD Primary Care Provider [phone] Encounter Details Date Type Department Care Team (Late st Contact Info) Description 04/25/2025 Results Follow-Up [facility] [address] [place] [address], [address] [place], [place] [id number] Michelle Gilliland MD [address] [facility] [address] [place] [address] Social History Tobacco Use Types [...] any time in the past 12 m [facility], were you homeless or living in a skilled nursing (including now)? No 02/16/2025 [facility] Utilities Answer Date Recorded In the past [...] st Contact Info) Description 05/19/2025 12:00 PM DYE REEL OPERATOR HELPER Telemedicine [facility] [address], [address] [place] [address] Perri Aguilar MA, [facility] [address] [place] [address] documented as of this encounter Visit Diagnoses Not on filedocumented in this encounter Care Teams Steel Layer Relationship Specialty Start Date End Date Isabela Thorpe MD [address] [place] [address] PCP - General Obstetrics Gynecology 02/15/25 documented as of this encounter
--- OUTSIDE RECORDS SUMMARY | 2025-05-13 04:06 | XMS_ITS | Clinical Summary ---
Author Organization [facility] [facility] Address [address] [place] [address] Care Team Providers Care Whiting Can Worker Name Role Phone Isabela Thorpe MD [...] Tablet by mouth once daily. 12/30/19 Active Active Problems Problem Noted Date Diagnosed [...] lamotrigine Recent encounter dx: 10/11/24: Appointment - [facility] 07/07/24: Appointment - [facility] 11/02/23: Support OP Encounter - [facility] 06/17/23: Appointment - [facility] 02/26/22: Appointment - [facility] Recent notes: 10/11/24: Progress Notes by Sadi [...] Encounters Date Type Department Care Team Description 04/05/2025 Telephone [facility] [address] [place] [address] Isabela Thorpe MD Imaging (Ultrasound 07/19/24 ) 03/17/2025 Telephone [facility] [address] [place] [address] Isabela Thorpe MD Cancelled Appt from Last 3 Months Immunizations Immunization Administration Dates Next Due COVID-19 vaccine ([employer] NTech 30mcg/0.3mL) PF, MDV 05/13/2021,10/11/2020,09/20/2020 HPV 9 (Gardasil [...] Lesbian or Alexis 05/12/2021 10 :50 AM 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 Job Start Date Job End [...] 37.3 C (99.2 F) 06/17/2023 2:28 PM UPHOLSTERY TECHNICIAN Respiratory Rate 14 02/23/2015 2:32 PM CDT Oxygen Saturation 98% 01/11/2025 4:08 PM CDT Inhaled Oxygen Concentration - - Weight 104.2 kg (229 lb 12.8 oz) 01/11/2025 4:08 PM CDT Height 161.5 cm (5' 3.58) 10/11/2024 1:26 PM CD T Body Mass Index 39.97 10/11/2024 1:26 PM CDT Plan of Treatment Health Maintenance Due Date Last Done Comments Hepatitis C screening for age 18-79 2015 Hepatitis B series for 19+ (1 of 3 - 19+ 3-dose series) 2016 COVID-19 vaccine series ( season) 2025 05/13/2021, 10/11/2020, 09/20/2020 Influenza Vaccine (#1) 2025 3, 02/27/2021, 03/03/2019 Depression screening for age 12+ 07/08/2025 07/08/2024, 07/07/2024, 09/26/2022, Additional history exists BMI (ht and wt on same day) for age 18+ 10/11/2025 10/11/2024, 07/07/2024, 10/28/2023, Additional history exists Pap test for age 21-65 07/19/2029 , 07/19/2024, 09/06/2020 Tetanus booster 02/27/2031 02/27/2021, 01/31/2010 RSV vaccine for adults or (1 - 1-dose 75+ series) 2072 HPV series for age 9-45 Completed 02/28/20, 06/02/2019, 01/27/2014 HIV for age 15-65 Completed 07/07/2024, 08/03/2019 Pneumococcal series for age 6-49 Aged Out No longer eligible based on patient's age to complete this topic Procedures Procedure Name Priority Date/Time Associated Diagnosis Comments BRIDGE OPERATOR SLIP THIN PREP PAP SCREEN IMAGED Routine 07/19/2024 2:01 PM UPHOLSTERY TECHNICIAN Pap smear for cervical cancer screening ANTI HIV 1/2 Routine 07/07/2024 2:25 PM UPHOLSTERY TECHNICIAN Routine screening for STI (sexually transmitted infection) from Last 3 Months or Most Recently Relevant to Health Maintenance Results * BRIDGE OPERATOR SLIP THIN PREP PAP SCREEN IMAGED (07/19/2024 2:01 PM UPHOLSTERY TECHNICIAN) Case Report Gynecologic Cytology Report Case: [id number] Authorizing Provider: Flaca Baca DO Collected: 07/19/2024 1401 Ordering Location: [facility] Received: 07/19/2024 1408 Clinic First Screen: Ingrid Kent Specimen: BRIDGE OPERATOR SLIP ThinPrep Vial Screening, Cervical 08/03/2024 12:06 PM UPHOLSTERY TECHNICIAN [facility] INTERPRETATION /RESULT NEGATIVE FOR INTRAEPITHELIAL LESION OR MALIGNANCY (NIL) (none) 08/03/2024 12:06 PM UPHOLSTERY TECHNICIAN [facility] at 1206 UPHOLSTERY TECHNICIAN ORGANISM(S) Shift in luciana suggestive of bacterial vaginosis 08/03/2024 12:06 PM UPHOLSTERY TECHNICIAN [facility] EN[facility] SPECIMEN ADEQUACY Satisfactory for evaluation Endocervical component present 08/03/2024 12:06 PM UPHOLSTERY TECHNICIAN [facility] HPV REQUEST HPV and PAP 08/03/2024 12:06 PM UPHOLSTERY TECHNICIAN [facility] Date of LMP hormonally suppressed 08/03/2024 12:06 PM UPHOLSTERY TECHNICIAN [facility] Last Pap Date 09/06/20 08/03/2024 12:06 PM UPHOLSTERY TECHNICIAN [facility] Last Pap Result NIL 08/03/2024 12:06 PM UPHOLSTERY TECHNICIAN [facility] Abnormal Pap or Austin Bx in last 5 years No 08/03/2024 12:06 PM UPHOLSTERY TECHNICIAN [facility] Menstrual Status Hormonally Suppressed 08/03/2024 12:06 PM UPHOLSTERY TECHNICIAN [facility] EN[facility] Austin Bx Done Today No 08/03/2024 12:06 PM UPHOLSTERY TECHNICIAN [facility] Additional Information None given 08/03/2024 12:06 PM UPHOLSTERY TECHNICIAN [facility] EN[facility] Comment: Cytology is screened at [facility] - [address], [place] [address] [address] [facility] - [address] [place] [address] and [facility] - [address] [place] [address] Interpreted at [facility] - [address], [place] [address] Automated Review Failed 08/03/2024 12:06 PM [facility] Comment:Processing failed, m anual screening required. ThinPrep Imaging System, [employer] ANCILLARY TESTING BRIDGE OPERATOR SLIP HPV Ordered, Please see separate report 08/03/2024 12:06 PM [facility] Note The pap test is a screening technique, not a diagnostic procedure. It is used primarily to screen for squamous cancers and precursor lesions. Published studies have shown that it is subject to both false negative and false positive results. The pap test should not be used as the sole means to diagnose or exclude pre-malignant and malignant lesions. 08/03/2024 12:06 PM UPHOLSTERY TECHNICIAN [facility] ENTRAL LABORATORY Other (Cervical) Non-Blood / Unknown 07/19/2024 2:01 PM UPHOLSTERY TECHNICIAN 07/19/2024 2:08 PM UPHOLSTERY TECHNICIAN Flaca Baca DO PATHOLOGY/CYTOLOGY Final Resu lt [facility] [address] [place] [address], [place] * ANTI HIV 1/2 (07/07/2024 2:25 PM UPHOLSTERY TECHNICIAN) HIV AG/AB, 4TH GEN NON-REACT SJ NON-REACT SJ [employer] [place] Comment: HIV-1 antigen and HIV-1/HIV-2 antibodies were [...] purpose. For additional information please refer to http://education.Mov[employer]/faq/LDD085 (This link is being provided for informational/ educational purposes only.) The performance of this assay has not been clinically validated in patients less than 2 years old. Blood BLOOD SPECIMEN / Unknown 07/07/2024 2:25 PM UPHOLSTERY TECHNICIAN 07/07/2024 2:26 PM UPHOLSTERY TECHNICIAN Isabela Thorpe MD SEND OUTS Final Resul t [facility] [address] [address], [place] [phone] [facility] [address] [place] [address] from Last 3 Months or Most Recently Relevant to Health Maintenance Insurance [phone] [phone] [facility] [phone] [phone] [facility] [address] [address] Care Teams Whiting Can Worker Relationship Specialty Start Date End Date Isabela Thorpe MD [address] [place] [address] PCP - General Family Practice 09/06/20
[2025-05-13 04:12] VITALS: BP 135/80; PULSE 66; RESP 16; TEMP 36.6; O2SAT 96; BMI 34.7
--- NOTE | 2025-05-13 04:21 | ED.GENADULT ---
HPI - General Adult General Time Seen by Provider: 04:22 Date Seen: 05/13/25 Chief complaint: Nausea/Vomiting Stated complaint: eating disorder, vomit, Time Seen by Provider: 05/13/25 04:20 Source: patient and RN notes reviewed Mode of arrival: ambulatory Limitations: no limitations History of Present Illness HPI narrative: This 29-year-old female woke up around 1:00 a.m. with vomiting. She has significant nausea and vomiting but no abdominal pain. She has had no fevers or chills. She has had no change in bowel habits. She has had a bilateral tubal ligation, no chance for . She does not believe that this is anything infectious, no travel, no ill contacts as far as a gastrointestinal illness. She has an eating disorder in her care team feels like her morning vomiting and dry heaving is from refeeding. She drank 3 ensures last night which would be about and 900 calories and is more than she took in all day. She is has [employer] at home, does not have any now. There was 1 episode when she was as bad as this before when the [employer] did not work. She does smoke marijuana occasionally with friends, last use 2 days ago. Did bring up cyclical vomiting briefly, she states her care team feels her symptoms is from side effects of eating again with her overlying eating disorder. She states she knows you should not drink water when your sick like this but sometimes she feels like she just has to to get something in and be able to vomit. She feels she needs IV fluids and anti nausea medicine. Related Data Home Medications ?Medication ?Instructions ?Recorded ?Confirmed cholecalciferol (vitamin D3) 10 10 mcg PO QDAY 12/07/24 04/13/25 mcg (400 unit) capsule hydroxyzine HCl 25 mg tablet 25 - 50 mg PO QPM PRN insomnia 12/07/24 04/13/25 fluvoxamine 100 mg tablet 150 mg PO QHS 04/13/25 04/13/25 lamotrigine 200 mg tablet 150 mg PO QDAY 04/13/25 04/13/25 trazodone 50 mg tablet 50 mg PO QHS PRN 04/13/25 04/13/25 Allergies Allergy/AdvReac Type Severity Reaction Status Date / Time No Known Drug Allergies Allergy Verified 04/13/25 09:59 Review of Systems Status of ROS: Reports: 6 or more systems reviewed and unremarkable except as noted in History and below [facility] Medical History Unwanted fertility ?Z30.09 - Encounter for other general counseling and advice on contraception (ICD-10) IUD strings lost ?T83.32XA - Displacement of intrauterine contraceptive device, initial encounter (ICD-10) ZENAIDA (obstructive sleep apnea) ?G47.33 - Obstructive sleep apnea (adult) (pediatric) (ICD-10) Bipolar 1 disorder, manic, moderate ?F31.12 - Bipolar disorder, current episode manic without psychotic features, moderate (ICD-10) Surgical History History of salpingectomy ?Z90.79 - Acquired absence of other genital organ(s) (ICD-10) Social History Smoking Status: Never smoker Do you use any of these nicotine containing products: None How often do you have a drink containing alcohol: monthly or less Alcohol type: hard liquor How many standard drinks containing alcohol do you have on a typical day: 1 or 2 How often do you have six or more drinks on one occasion: Never AUDIT-C Alcohol total score: 1 Non-prescribed substance use: marijuana (any form) Non-prescribed substance use details: states 2d ago Caffeine: Yes Are you using contraception or practicing any form of control: No service: No Exam Const: Vital Signs, click to edit/add: Vital Signs - 24 hr 05/13/25 04:12 Temperature 97.8 F Pulse Rate [Pulse Oximeter] 66 Respiratory Rate 16 Blood Pressure [Ri ght Upper Arm] 135/80 Pulse Oximetry 96 Oxygen Delivery Me thod Room Air This 29-year-old female is alert, interactive, no apparent distress. She is lying in the bed in exam room 5, looks comfortable. Speech is normal. Sclera clear, conjugate gaze, symmetrical facial function. Lungs are clear, good air entry, no wheezing or crackles, no tachypnea, no accessory muscle use. CV regular rate and rhythm, no murmur, normal S1-S2. Abdomen is soft, nontender, nondistended, no organomegaly, rebound or guarding, normal bowel sounds. Skin visualized without rash or jaundice. Patient was ambulatory into the ED of her own accord. Documenting provider has reviewed patient's vital signs: yes Course Course ED Course: This 29-year-old female is presenting with nausea and vomiting without any abdominal pain, no diarrhea and having bowel movements, no fevers. Her exam is quite reassuring. I ultimately do wonder about cyclical vomiting based on her symptoms but she does also have an eating disorder. She does have a care team for her eating disorder, is an active treatment. We are going to initiate IV fluids, check an EKG for QT interval before giving Zofran. If her QT is significantly elevated, will give IV magnesium. Will use Ativan if QT is elevated, otherwise will be using Zofran. Will check comprehensive metabolic panel and CBC as well. I do not feel any imaging is necessary, we can reconsider based on labs or clinical course here. Reevaluation(s) Time of Reevaluation #1: 04:38 Reevaluation #1: EKG reviewed, no QT prolongation. Will proceed with IV Zofran. We will plan on sending her with the 10 pills of Zofran out of [employer]. Time of Reevaluation #2: 05:05 Reevaluation #2: Patient is feeling a bit better. She has about half of the IV fluids in. Did review with her that she can have more Zofran, can give up to 8 mg. She is thinking she would like this, would like to go home after the IV fluids are finished. Did discuss with her doing a 2 L as we have the IV in place but at this time she is thinking after the Zofran and the completion of this bag of IV fluids, she is hoping to discharge to home. Hopefully with the 2nd dose of Zofran, she will get near resolution of her nausea symptoms. She states that pit of sickness in her stomach is gone, overall better but not back to baseline. Vital Signs Vital signs: Initial Vital Signs Temperature 97.8 F 05/13/25 04:12 Temperature Source Temporal Artery Scan 05/13/25 04:12 Pulse Rate 66 05/13/25 04:12 Respiratory Rate 16 05/13/25 04:12 Blood Pressure 135/80 05/13/25 04:12 Blood Pressure Mean 98 05/13/25 04:12 Blood Pressure Position Sitting 05/13/25 04:12 Pulse Oximetry 96 05/13/25 04:12 Oxygen Delivery Method Room Air 05/13/25 04:12 Vital Signs Temperature 97.8 F 05/13/25 04:12 Pulse Rate 66 05/13/25 04:12 Respiratory Rate 16 05/13/25 04:12 Blood Pressure 135/80 05/13/25 04:12 Pulse Oximetry 96 05/13/25 04:12 Oxygen Delivery Method Room Air 05/13/25 04:12 Temperature 97.8 F 05/13/25 04:12 Pulse Rate 66 05/13/25 04:12 Respiratory Rate 16 05/13/25 04:12 Blood Pressure 135/80 05/13/25 04:12 Pulse Oximetry 96 05/13/25 04:12 Oxygen Delivery Method Room Air 05/13/25 04:12 Medications Administered Medications: Generic Name Dose Route Start Last Admin Trade Name Freq PRN Reason Stop Dose Admin Sodium Chloride 1,000 mls @ 1,000 mls/hr 05/13/25 04:21 05/13/25 04:41 0.9 % Sodium Chloride 1000 Ml IV 05/13/25 05:20 1,000 mls/hr .Q1H TERENCE Administration Ondansetron HCl 4 mg 05/13/25 04:37 05/13/25 04:41 Ondansetron 2 Mg/Ml Inj IVP 05/13/25 04:38 4 mg ONCE ONE Administration Medical Decision Making Lab Data Lab results reviewed: Yes I reviewed the patient's lab results Labs: Lab Results 05/13/25 Range/Units 04:22 WBC 14.21 H (4.50-11.00) K/uL RBC 4.82 (4.00-5.20) m/uL Hgb 14.4 (12.0-16.0) gm/dL Hct 42.2 (33.0-51.0) % MCV 88 (80-100) fL MCH 30 (26-34) pg MCHC 34 (32-36) gm/dL RDW Coeff of Gurjit 12.9 (11.5-15.5) % Plt Count 321 (140-440) K/uL Neut % (Auto) 84.8 H (42.0-72.0) % Lymph % (Auto) 8.7 L (20-44) % [place] % (Auto) 3.9 (0.0-11.0) % Eos % (Auto) 2.0 (0.0-7.0) % Baso % (Auto) 0.3 (0.0-3.0) % Neut # (Auto) 12.10 H (1.7-7.0) K/uL Lymph # (Auto) 1.20 (0.90-2.90) K/uL [place] # (Auto) 0.60 (0.00-0.90) K/UL Eos # (Auto) 0.30 (0.00-0.50) K/uL Baso # (Auto) 0.00 (0.00-0.30) K/uL Abs Immat Gran (auto) 0.00 (0.00-0.30) K/uL Imm/Tot Granulo (auto) 0.3 % Sodium 138 (135-149) mmol/L Potassium 4.1 (3.6-5.1) mmol/L Chloride 103 (96-114) mmol/L Carbon Dioxide 23 (20-32) mmol/L Anion Gap 12 (7-15) mEq/L BUN 14 (5-24) mg/dL Creatinine 0.7 (0.5-1.5) mg/dL Estimated Creat Clear 99.86 Estimated GFR 121 ml/min Glucose 122 H (60-115) mg/dL Calcium 9.2 (8.4-10.6) mg/dL Total Bilirubin 0.4 (0.1-1.5) mg/dL AST 24 (12-35) U/L ALT 23 (4-35) U/L Alkaline Phosphatase 124 (40-150) U/L Total Protein 6.9 (6.0-8.3) g/dL Albumin 4.4 (3.3-5.0) g/dL ECG Data Attestation: I personally reviewed and interpreted this ECG as follows: (Normal sinus rhythm with sinus arrhythmia, 64 beats per minute. QT corrected 412 milliseconds.) Prior ECG tracings: not available for review Discharge Plan Discharge Clinical Impression: Nausea and vomiting Qualifiers: Vomiting type: unspecified Qualified Code(s): R11.2 - Nausea with vomiting, unspecified Patient Disposition: Home, Self-Care Condition: Stable Instructions: Acute Nausea and Vomiting (ED) Additional Instructions: Can use Zofran per prescription instructions as needed for any further nausea and vomiting. Do recommend drinking small frequent sips of fluids to stay hydrated, meaning 1-2 sips every 5-10 minutes while awake. This helps to not overload your stomach and cause further vomiting. You can advance her diet back to normal as you feel better. If you develop fever or significant abdominal pain in context of nausea and vomiting, do recommend re-evaluation. Activity Level: No Restrictions Diet Detail: Follow dietary recommendations from your care team for your baseline diet once you feel better. Prescriptions: No Action lamotrigine 200 mg tablet 150 mg PO QDAY trazodone 50 mg tablet 50 mg PO QHS PRN fluvoxamine 100 mg tablet 150 mg PO QHS hydroxyzine HCl 25 mg tablet 25 - 50 mg PO QPM PRN (Reason: insomnia) cholecalciferol (vitamin D3) 10 mcg (400 unit) capsule 10 mcg PO QDAY Follow Up/Referrals: Isabela Thorpe MD [Primary Care Provider, Obstetrics] Stand Alone Forms: [employer] Info Instructions
[2025-05-13 04:29] LABS: Hematocrit* 42.2 % (33.0-51.0); Hemoglobin* 14.4 gm/dL (12.0-16.0); Immature Granulocytes Pct Auto 0.3 %; Mean Corpuscular HGB Conc 34 gm/dL (32-36); Mean Corpuscular Hemoglobin 30 pg (26-34); Mean Corpuscular Volume 88 fL (80-100); RDW Coefficient of Variation % 12.9 % (11.5-15.5); Red Blood Count* 4.82 m/uL (4.00-5.20); White Blood Count* 14.21 K/uL (4.50-11.00)
[2025-05-13 04:31] LABS: Immature Granulocytes Abs Auto 0.00 K/uL (0.00-0.30); Lymphocytes Absolute Auto 1.20 K/uL (0.90-2.90); Slide Review Reflex No
[2025-05-13 04:41] LABS: Albumin* 4.4 g/dL (3.3-5.0); Chloride* 103 mmol/L (96-114); Potassium* 4.1 mmol/L (3.6-5.1); Sodium* 138 mmol/L (135-149)
[2025-05-13] MEDS: ONDANSETRON 2 MG/ML inj 4 MG IVP ×2 (04:41→05:05)
[2025-05-13 04:44] LABS: Alanine Aminotransferase* 23 U/L (4-35); Alkaline Phosphatase* 124 U/L (40-150); Anion Gap 12 mEq/L (7-15); Aspartate Amino Transferase* 24 U/L (12-35); Bilirubin Total* 0.4 mg/dL (0.1-1.5); Blood Urea Nitrogen* 14 mg/dL (5-24); Calcium* 9.2 mg/dL (8.4-10.6); Carbon Dioxide* 23 mmol/L (20-32); Creatinine* 0.7 mg/dL (0.5-1.5); Est. Creatinine Clearance* 99.86; Estimated Glomerular Filt Rate 121 ml/min; Glucose* 122 mg/dL (60-115); Total Protein* 6.9 g/dL (6.0-8.3)
[2025-05-13 05:19] VITALS: BP 130/78; PULSE 67; RESP 16; TEMP 36.9; O2SAT 97
== END 2025-05-13 05:31 | disposition home or self-care (01) ==
LOC: ED 05:01
PROVIDERS: Emergency Provider Family Medicine; PCP Family Medicine
DX: R11.2 Nausea with vomiting, unspecified (principal)
CPT/HCPCS: 36415; 80053; 85025; 93005; 96374; 96376; 99284; J2405; J7030